=== PATIENT | female | born 1930 | race Caucasian/White ===

== ENCOUNTER 2016-10-31 19:40 | Inpatient (IN) | payer OTHER, BC ==
[~2016-10-31] VITALS: Ht 157.5 cm; Wt 40.0 kg
--- NOTE | 2016-10-31 21:55 | ED ORDER SUMMARY ---
..... Patient: LEANN TORERS OrderSheet [facility] VisitID: [id number] [place] [address] 86y, F Registration Date/Time: 10/31/2016 ORDER SHEET Weight: 40.8 kg (stated) Allergies: Codeine, Sulfa Antibiotics GENERAL ORDERS: Hip 2V Right w AP Pelvis Urgent (21:08 10/31/2016 Geneva ANDERSON) (Ack 21:10 SRedmond) (21:31 RCollier R.N.) Chest 1V Urgent (21:19 10/31/2016 EKoroleva P.A.-C) (Ack 21:32 SRedmond) (21:35 Anel) Cardiac Panel Stat (21:49 10/31/2016 Geneva ANDERSON) (Ack 21:52 SRedmond) (22:34 RCollier R.N.) UA-Culture if indicated Urgent (21:49 10/31/2016 Geneva ANDERSNO) (Ack 21:52 SRedmond) PT with INR Urgent (21:49 10/31/2016 Geneva ANDERSON) (Ack 21:52 SRedmond) (22:34 RCollier R.N.) PTT Urgent (21:49 10/31/2016 Geneva ANDERSON) (Ack 21:52 SRedmond) (22:34 RCollier R.N.) Barbour Catheter (21:49 10/31/2016 Geneva ANDERSON) (Ack 21:51 SRedmond) EKG - ER Stat (21:49 10/31/2016 Geneva ANDERSON) (Ack 21:51 SRedmond) (22:11 SRedmond) MEDICATION ORDERS: IV FLUIDS: IV NS : initial bolus none -, then 100 mL/hr for 6h (NOW); Routine (21:46 10/31/2016 Geneva ANDERSON) (Ack 22:23 RCollier R.N.) (22:33 RCollier R.N.) Demerol IV 12.5 mg (NOW) (21:49 10/31/2016 Geneva ANDERSON) (Ack 22:23 ELADIOollier R.N.) (22:34 RCollier R.N.) ORDER SHEET NOTES: [Electronically signed by Ainsley Arora R.N. (04:43 11/01/2016)] [Electronically signed by Natan Dela Cruz MD (11:41 11/02/2016)] [Electronically locked/signed by Ainsley Arora R.N. (04:43 11/01/2016)]
--- NOTE | 2016-10-31 21:55 | ED CLINICAL REPORT ---
Clinical Report - Physicians/Mid Levels [facility] [address] [place] [address] 10/31/2016 19:41 Patient: LEANN TORRES Time Seen: 20:53 Oct 31 2016. Arrived- By private vehicle. Historian- patient, family and daughter. CPT: ER phys charges level 5 plus (#[id number]). EKG interpretation (#[id number]). HISTORY OF PRESENT ILLNESS Chief Complaint: FALL and INJURY TO RIGHT LOWER EXTREMITY (HIP). The injury occurred today. Occurred at home. Fell. She experienced syncope. The patient complains of moderate pain. No blow to the head, neck pain or loss of consciousness. REVIEW OF SYSTEMS The patient complains of severe pain on weight bearing. She cannot bear weight. No numbness, dizziness, hearing loss or chest pain or pain. No weakness, nausea, laceration, fever or vomiting. No sore throat, cough, difficulty breathing, abdominal pain or black stools. No urinary frequency, hematuria, dizziness, fainting episodes or weakness. No diabetic symptoms, easy bruising or difficulty with urination. The patient has had difficulty walking. All systems otherwise negative, except as recorded above. PAST HISTORY Hypertension. Syncope. Fall. Bipolar Disorder. CVA - Cerebrovascular Accident. Ca colon, breast . Diabetes Mellitus. Hiatal Hernia. --20:43 Ainsley Arora RMegN. ADDITIONAL SURGERIES: Hysterectomy. Mastectomy. --20:43 Ainsley Arora R.N. Appendectomy. Cholecystectomy. Tonsillectomy. ADDITIONAL NOTES The nursing notes have been reviewed. PHYSICAL EXAM Vital Signs: 10/31/2016 20:36 BP: 241/84. HR: 78. RR: 15. O2 saturation: 96%. Temp: 98.1 F. Savage-Whaley pain scale: 4/10. Appearance: Alert. Appears to be in pain. Patient in moderate distress. Head: Head non-tender. No swelling of head. Eyes: Pupils equal, round and reactive to light. EOM intact. ENT: No dental injury. Pharynx normal. Neck: Painless ROM. Non-tender. CVS: Heart sounds normal. Pulses normal. Respiratory: Breath sounds normal. Chest nontender. Abdomen: No visible injury. Soft and nontender. Back: No tenderness. ROM normal. Skin: Skin intact. Skin warm. Normal skin color. Extremities: Right hip: severe tenderness located in the anterior and lateral aspect of the hip. The right leg is shortened and internally rotated. Limited ROM secondary to pain. Neurovascular intact distally. No swelling, foreign body or deformity. Neuro: Oriented X 3. No motor deficit. No sensory deficit. Reflexes normal. LABS, X-RAYS, AND EKG EKG: Normal sinus rhythm. Right and left atrial enlargement. LVH. Non-specific ST segment / T wave abnormalities. Prior EKG unavailable. The study has been interpreted contemporaneously. The study has been independently viewed by me. The EKG appears to be a good tracing. X-Rays: Chest X-ray negative. Rt Hip X-ray: Displaced, transverse femoral neck fracture of the right hip. Views: 2 view hip series. Technique: good. The X-rays were independently viewed by me and interpreted contemporaneously by me. Laboratory Tests: CBC w Diff: (EN: 11/02/2016 05:35) ( MsgRcvd 11/02/2016 06:10) Final results Test Result Flag Units (Reference) WHITE BLOOD COUNT 9.7 K/uL (4.5-11.5) RED BLOOD COUNT 3.14 L M/uL (4.00-5.20) HEMOGLOBIN 9.7 L gm/dL (12.0-16.0) HEMATOCRIT 29.8 L % (36.0-46.0) MEAN CELL VOLUME 95 fL (80-100) MEAN CORPUSCULAR HGB 31 pg (26-34) MEAN CORPUSCULAR HGB CONC 33 g/dL (31-37) RED CELL DISTRIBUTION WIDTH 13.4 % (11.6-14.8) PLATELET COUNT 85 L K/uL (150-400) NEUTROPHIL % 56.4 % (50-75) LYMPH % 36.9 % (25-40) MONO % 6.2 % (3-14) EOSINOPHIL % 0.2 % (0-4) BASOPHIL % 0.3 % (0-2) BMP: (EN: 11/02/2016 05:35) ( [facility] 11/02/2016 06:24) Final results Test Result Flag Units (Reference) GLUCOSE 172 H mg/dL (70-110) BUN 18 mg/dL (7-18) CREATININE 0.7 mg/dL (0.6-1.3) Estimated GFR >60 mL/min Estimated GFR- >60 mL/min Note: Persistent reduction over 3 months in eGFR<60 mL/min/1.73 m2 defines CKD. Patients with eGFR values>=60 mL/min/1.73 m2 may also have CKD if evidence ofpersistent proteinuria. Additional information may be foundat [email or web address]. SODIUM 138 mmol/L (136-145) POTASSIUM 3.9 mmol/L (3.5-5.1) CHLORIDE 104 mmol/L (98-107) CARBON DIOXIDE 26 mmol/L (21-32) CALCIUM 7.4 L mg/dL (8.5-10.1) Hgb/Hct: (EN: 11/01/2016 16:35) ( [facility] 11/01/2016 16:43) Final results Test Result Flag Units (Reference) HEMOGLOBIN 11.3 L gm/dL (12.0-16.0) HEMATOCRIT 34.3 L % (36.0-46.0) CBC w Diff: (EN: 11/01/2016 05:10) ( [facility] 11/01/2016 05:26) Final results Test Result Flag Units (Reference) WHITE BLOOD COUNT 12.2 H K/uL (4.5-11.5) RED BLOOD COUNT 3.39 L M/uL (4.00-5.20) HEMOGLOBIN 10.4 L gm/dL (12.0-16.0) HEMATOCRIT 31.5 L % (36.0-46.0) MEAN CELL VOLUME 93 fL (80-100) MEAN CORPUSCULAR HGB 31 pg (26-34) MEAN CORPUSCULAR HGB CONC 33 g/dL (31-37) RED CELL DISTRIBUTION WIDTH 13.1 % (11.6-14.8) PLATELET COUNT 98 L K/uL (150-400) NEUTROPHIL % 52.9 % (50-75) LYMPH % 36.7 % (25-40) MONO % 9.8 % (3-14) EOSINOPHIL % 0.2 % (0-4) BASOPHIL % 0.4 % (0-2) CMP: (EN: 11/01/2016 05:10) ( [facility] 11/01/2016 05:38) Final results Test Result Flag Units (Reference) GLUCOSE 120 H mg/dL (70-110) BUN 23 H mg/dL (7-18) CREATININE 0.7 mg/dL (0.6-1.3) Estimated GFR >60 mL/min Estimated GFR- >60 mL/min Note: Persistent reduction over 3 months in eGFR<60 mL/min/1.73 m2 defines CKD. Patients with eGFR values>=60 mL/min/1.73 m2 may also have CKD if evidence ofpersistent proteinuria. Additional information may be foundat [email or web address]. SODIUM 138 mmol/L (136-145) POTASSIUM 4.1 # mmol/L (3.5-5.1) CHLORIDE 103 mmol/L (98-107) CARBON DIOXIDE 29 mmol/L (21-32) CALCIUM 8.2 L mg/dL (8.5-10.1) TOTAL PROTEIN 5.4 L g/dL (6.4-8.2) ALBUMIN 3.0 L g/dL (3.3-5.0) BILIRUBIN, TOTAL 0.4 mg/dL (0.0-1.0) ALKALINE PHOSPHATASE 50 U/L (46-116) AST (SGOT) 25 U/L (15-37) ALT (SGPT) 60 U/L (12-78) MAGNESIUM 1.5 L mg/dL (1.8-2.4) UA-Culture if indicated: (EN: 10/31/2016 23:13) ( [facility] [place] 10/31/2016 23:27) Final results Test Result Flag Units (Reference) URINE COLOR YELLOW URINE APPEARANCE CLEAR URINE GLUCOSE NEGATIVE (NEGATIVE) URINE BILIRUBIN NEGATIVE (NEGATIVE) URINE KETONE 3+ (NEGATIVE) URINE SPECIFIC GRAVITY 1.020 (1.010-1.030) URINE PH 6.0 (5.0-8.0) URINE PROTEIN TRACE (NEGATIVE) URINE UROBILINOGEN 0.2 EU/dL (0.2-1.0) URINE NITRITE NEGATIVE (NEGATIVE) URINE BLOOD NEGATIVE (NEGATIVE) URINE LEUK ESTERASE NEGATIVE (NEGATIVE) URINE RBC RARE rbc/hpf (0-1) URINE WBC RARE wbc/hpf (0-1) URINE EPITHELIAL CELLS 0-1 EPI/hpf (0-5) URINE BACTERIA TRACE (<1+) (NONE SEEN) URINE COMMENT CULT NOT INDICATED RARE SODIUM URATE CRYSTALS.URINE CULTURES ARE SET-UP BASED ON THE FOLLOWING CRITERIA:POSITIVE NITRITEPOSITIVE LEUKOCYTE ESTERASEGREATER THAN 10 WHITE BLOOD CELLSMODERATE (2+) OR GREATER BACTERIA CBC w Diff: (EN: 10/31/2016 22:20) ( MsgRcvd 10/31/2016 23:05) Final results Test Result Flag Units (Reference) WHITE BLOOD COUNT 15.7 H K/uL (4.5-11.5) RED BLOOD COUNT 4.12 M/uL (4.00-5.20) HEMOGLOBIN 12.6 gm/dL (12.0-16.0) HEMATOCRIT 39.0 % (36.0-46.0) MEAN CELL VOLUME 95 fL (80-100) MEAN CORPUSCULAR HGB 31 pg (26-34) MEAN CORPUSCULAR HGB CONC 32 g/dL (31-37) RED CELL DISTRIBUTION WIDTH 13.3 % (11.6-14.8) PLATELET COUNT 123 L K/uL (150-400) GIANT PLATELETS NOTED ON SMEAR REVIEW. NEUTROPHIL % 84.0 H % (50-75) LYMPH % 11.8 L % (25-40) MONO % 4.0 % (3-14) EOSINOPHIL % 0 % (0-4) BASOPHIL % 0.2 % (0-2) PT with INR: (EN: 10/31/2016 22:20) ( MsgRcvd 10/31/2016 22:43) Final results Test Result Flag Units (Reference) INR 0.9 (0.8-1.2) Low Intensity Therapy: INR 1.5-2.0 PT range 18.5-23.1Mod.Intensity Therapy: INR 2.0-3.0 PT range 23.1-31.5High Intensity Therapy: INR 2.5-3.5 PT range 27.4-35.5High Intensity Therapy 2: INR 3.0-4.0 PT range 31.5-39.3 APTT 22 L SECONDS (24-34) CHEM 13 PANEL: (EN: 10/31/2016 22:20) ( MsgRcvd 10/31/2016 22:54) Final results Test Result Flag Units (Reference) GLUCOSE 215 H mg/dL (70-110) BUN 27 H mg/dL (7-18) CREATININE 0.9 mg/dL (0.6-1.3) Estimated GFR >60 mL/min Estimated GFR- >60 mL/min Note: Persistent reduction over 3 months in eGFR<60 mL/min/1.73 m2 defines CKD. Patients with eGFR values>=60 mL/min/1.73 m2 may also have CKD if evidence ofpersistent proteinuria. Additional information may be foundat www.[email or web address]. SODIUM 136 mmol/L (136-145) POTASSIUM 4.9 mmol/L (3.5-5.1) CHLORIDE 99 mmol/L (98-107) CARBON DIOXIDE 28 mmol/L (21-32) CALCIUM 9.5 mg/dL (8.5-10.1) TOTAL PROTEIN 6.8 g/dL (6.4-8.2) ALBUMIN 3.9 g/dL (3.3-5.0) BILIRUBIN, TOTAL 0.5 mg/dL (0.0-1.0) ALKALINE PHOSPHATASE 67 U/L (46-116) AST (SGOT) 29 U/L (15-37) ALT (SGPT) 84 H U/L (12-78) MAGNESIUM 1.7 L mg/dL (1.8-2.4) CPK 94 U/L (24-260) TROPONIN I 0.05 ng/mL (0.00-1.5) TROPONIN REFERENCE RANGE:<0.1 NEGATIVE0.1-1.5 INDETERMINANT>1.5 POSITIVE Type & Cross: (EN: 11/01/2016 05:10) ( MsgRcvd 11/01/2016 13:08) IP Test Result Flag Units (Reference) PATIENT BLOOD TYPE A Positive Above is a corrected result. Previously reported on ( MsgRcvd 11/01/2016 09:06) as: PATIENT BLOOD TYPE A Positive LEUKOREDUCED PACKED CELLS [id number] AP PC XM COMPATIBLE [id number] AP PC XM COMPATIBLE . PROGRESS AND PROCEDURES Course of Care: IV NS Demerol 12.5 mg IV Patient is stable. Symptoms better. Discussed case with on-call health care provider, (Arleen). Reviewed test results. Agreed upon treatment plan and decision to admit. Health care provider will see patient in hospital. Patient/family counseled. Old medical records ordered. Disposition orders written. Disposition: Admitted to Acute Care. CLINICAL IMPRESSION Closed displaced and mildly angulated fracture of the subcapital neck of the right femur. Fall on same level by tripping. (Electronically signed by Natan Dela Cruz MD 11/02/2016 11:41)
--- NOTE | 2016-10-31 21:55 | ED NURSING NOTES ---
Clinical Report - Nurses [facility] [address] [place] [address] 10/31/2016 19:41 Patient: LEANN TORRES TRIAGE Triage time 20:36. Acuity: LEVEL 3. Chief Complaint: FALL while walking, onto the ground; lost balance (2 falls today). Alert. --20:45 Ainsley Arora R.N. 20:36 10/31/16. BP: 241/84. HR: 78. RR: 15. O2 saturation: 96% on room air. Temp: 98.1 F (oral). Savage-Whaley pain scale: 4/10. --20:45 Ainsley Arora R.N. Weight: 40.8 kg stated. Height/Length: 62 inches Per Patient. BMI: 16.5. --20:44 Ainsley Arora R.N. Medications Citalopram Hydrobromide Oral (Tablet 20 mg) 1 tablet, day. Divalproex Sodium Oral (Tablet Delayed Release 250 mg) 1 tablet, day. MetFORMIN HCl Oral 500 mg, 3x a day. Simvastatin Oral 20 mg, daily. TraZODone HCl Oral 50 mg, daily. --20:41 Ainsley Arora R.N. Losartan Potassium Oral (Tablet 100 mg) 1 tablet, daily. --20:41 Ainsley Arora R.N. Metoprolol Succinate ER Oral 500mg, daily. --20:42 Ainsley Arora R.N. Aspirin Oral (Tablet 81 mg) 1 tablet, daily. --20:43 Ainsley Arora R.N. Allergies Codeine. Sulfa Antibiotics. --20:41 Ainsley Arora R.N. History Arrived by private vehicle. Historian: patient. Accompanied by family. Primary physician (Jaspal). Location of injuries: right hip. This occurred today. Occurred at home. PAST MEDICAL HX: Tetanus status: up-to-date. Immunizations: up-to-date. SOCIAL HX: Never smoker. No alcohol use. FUNCTIONAL ASSESSMENT: Functional assessment performed: independent with the activities of daily living; uses a walking stick. --20:45 Ainsley Arora R.N. PROBLEMS: Hypertension. Syncope. Fall. Bipolar Disorder. CVA - Cerebrovascular Accident. Ca colon, breast . Diabetes Mellitus. Hiatal Hernia. --20:43 Ainsley Arora R.N. ADDITIONAL SURGERIES: Hysterectomy. Mastectomy. --20:43 Ainsley Arora R.N. Appendectomy. Cholecystectomy. Tonsillectomy. --20:44 Ainsley Arora R.N. Interventions ID band on patient. To treatment room. --20:45 Ainsley Arora R.N. PHYSICAL ASSESSMENT To room via wheelchair. Patient gowned. GENERAL / NEURO / PSYCH: Alert. Oriented X 4. Appears in no acute distress. CVS: Capillary refill less than 2 seconds. SKIN: Skin is warm and dry. --20:45 Ainsley Arora R.N. NURSING PROGRESS NOTES Two patient identifiers checked. Call light placed in reach. Side rails up x 2. Bed placed in lowest position. Brakes of bed on. --20:45 Ainsley Arora R.N. Patient ready for evaluation- chart flagged. --20:45 Ainsley Arora R.N. ( Assisted [employer] to move pt from ED bed to Radiology table.). --21:21 Ainsley Arora R.N. ( Pt's daughter reports that she gave her night time medications (Simvastatin, Citalopram, Trazadone, Metformin, Metoprolol, and Divalproex) EDMD aware.). --21:30 Ainsley Arora R.N. 22:25 10/31/2016 Site #1 started via IV in the right antecubital space with an 20g angiocath, with aseptic technique and good blood return; one attempt. Blood drawn: rainbow set. Labeled in the presence of the patient and sent to the lab. Saline lock flushed with 10 mL saline. --22:25 Frederick Mcdonald 22:30 10/31/2016 Started bag #1 1000 mL IV Fluids IV NS (Saline); at 100 mL/hr via site #1 via IV pump. Allergies verified and confirmed 5 rights. IV patency established. IV site checked: no pain, redness, or swelling. IV flushed thoroughly pre- and post-medication administration. --22:33 Ainsley Arora R.N. 22:31 10/31/2016 Demerol (Meperidine HCl) IVP 12.5 mg given over 1 minute(s) via site #1. Allergies verified and confirmed 5 rights. IV patency established. IV site checked: no pain, redness, or swelling. IV flushed thoroughly pre- and post-medication administration. IVP given by RN. --22:34 Ainsley Arora R.N. 22:34 10/31/16. BP: 166/72. HR: 82. RR: 15. O2 saturation: 97% on room air. Savage-Whaley pain scale: 2/10. --22:35 Ainsley Arora R.N. 16 fr conti catheter. During procedure hand hygiene observed and sterile equipment and aseptic technique used. Return of less than 50 mL yellow-colored clear urine; secured with stabilization device. It was a complicated placement. She tolerated procedure well. Patient ID band checked for patient name and birthdate: patient confirmed. Catheterized urine collected with return of yellow-colored clear urine; sample sent to lab. Specimen labeled in the presence of the patient. --23:16 Ainsley Arora R.N. EKG time: (2218 PM). EKG was ordered, performed by a tech and shown to the ED physician. --23:38 Morena Orozco. DISPOSITION / DISCHARGE Report was given to a nurse via a phone call. Report included patient's care, treatment, medications, reviewed medication reconcilliation, and condition (including any recent changes or anticipated changes). All questions were answered. Report was acknowledged. --23:35 Ainsley Arora R.N. 23:36 10/31/16. BP: 155/70. HR: 78. RR: 15. O2 saturation: 95% on room air. Savgae-Whaley pain scale: 4/10. --23:36 Ainsley Arora R.N. 23:36 10/31/2016 Site #[address] upon admission; flushes easily. --23:37 Ainsley Arora R.N. 23:37 10/31/2016 IV Fluids IV NS Continued: upon admission at the rate of 100 mL/hr. 900 mL remaining bag #1. IV patency established. IV site checked: no pain, redness, or swelling. IV flushed thoroughly. --23:37 Ainsley Arora R.N. Locked/Released at 11/01/2016 4:43 by Ainsley Arora R.N.
--- NOTE | 2016-10-31 21:55 | ED ORDER SUMMARY ---
..... Patient: LEANN TORRES OrderSheet [facility] VisitID: [id number] [place] [address] 86y, F Registration Date/Time: 10/31/2016 ORDER SHEET Weight: 40.8 kg (stated) Allergies: Codeine, Sulfa Antibiotics GENERAL ORDERS: Hip 2V Right w AP Pelvis Urgent (21:08 10/31/2016 [place] ANDERSON) (Ack 21:10 SRedmond) (21:31 RCollier R.N.) Chest 1V Urgent (21:19 10/31/2016 EKoroleva P.A.-C) (Ack 21:32 SRedmond) (21:35 Anel) Cardiac Panel Stat (21:49 10/31/2016 Geneva ANDERSON) (Ack 21:52 SRedmond) (22:34 RCollier R.N.) UA-Culture if indicated Urgent (21:49 10/31/2016 Geneva ANDERSON) (Ack 21:52 SRedmond) PT with INR Urgent (21:49 10/31/2016 [place] ANDERSON) (Ack 21:52 SRedmond) (22:34 RCollier R.N.) PTT Urgent (21:49 10/31/2016 [place] ANDERSON) (Ack 21:52 SRedmond) (22:34 RCollier R.N.) Barbour Catheter (21:49 10/31/2016 [place] ANDERSON) (Ack 21:51 SRedmond) EKG - ER Stat (21:49 10/31/2016 [place] ANDERSON) (Ack 21:51 SRedmond) (22:11 SRedmond) MEDICATION ORDERS: IV FLUIDS: IV NS : initial bolus none -, then 100 mL/hr for 6h (NOW); Routine (21:46 10/31/2016 Geneva ANDERSON) (Ack 22:23 RCollier R.N.) (22:33 RCollier R.N.) Demerol IV 12.5 mg (NOW) (21:49 10/31/2016 [place] ANDERSON) (Ack 22:23 ELADIOollier R.N.) (22:34 RCollier R.N.) ORDER SHEET NOTES: [Electronically signed by Ainsley Arora R.N. (04:43 11/01/2016)] [Electronically signed by Natan Dela Cruz MD (11:41 11/02/2016)] [Electronically locked/signed by Ainsley Arora R.N. (04:43 11/01/2016)]
--- NOTE | 2016-10-31 22:33 | DIAGNOSTIC IMAGING REPORT ---
PROCEDURE: XR HIP 2VW W W/O AP PELVIS-RT INDICATION: TRAUMA/INJURY TECHNIQUE: AP view of the pelvis and hips with lateral view of the right hip. COMPARISON: None. FINDINGS: RIGHT HIP: Decreased mineralization. There is varus deformity and slight cranial impaction of the right hip secondary to a subcapital right femoral neck fracture. No dislocation. PELVIS: Decreased mineralization. No visible pelvic fractures. The left hip is intact. No unusual soft tissue mass. Moderate retained stool. Degenerative change in the lower thoracic spine. Surgical staple line of prior bowel anastomosis visualized. IMPRESSION: 1. Impacted subcapital right femoral neck fracture. 2. Mild demineralization.
--- NOTE | 2016-10-31 22:35 | DIAGNOSTIC IMAGING REPORT ---
PROCEDURE: XR CHEST 1 VIEW INDICATION: CHEST PAIN TECHNIQUE: Single view COMPARISON: 06/21/2016 FINDINGS: The cardiomediastinal contour is normal. No central venous congestion. The lungs mildly hyperlucent with coarse interstitial markings but otherwise clear without focal consolidation, pleural effusion or pneumothorax. The osseous structures are intact. Surgical clips in the left upper quadrant of the abdomen. IMPRESSION: 1. No acute disease. 2. Senescent changes and/or fibrosis.
[2016-10-31 23:54] VITALS: BP 145/62
[2016-11-01] VITALS (10 sets, daily range): BP systolic 130–169; BP diastolic 58–75
--- NOTE | 2016-11-01 00:18 | History & Physical Report ---
Information Source Information Source: Self, Child Reliability: Good History Chief Complaint Fall with right hip fracture History of Present Illness Patient is an 86-year-old female with a past medical history of hypertension diabetes and hyperlipidemia that is presenting with mechanical fall at home resulting in a right hip fracture. Patient has been in her usual state of health for the past few years with no major incidences. She has been in good health has been following up with doctors regularly and has been compliant with her medication regimen. Patient was at home today ambulatory as she usually is when she suffered a mechanical fall and fell on her right side. There were no issues surrounding the fall patient had appropriate mentation during the fall itself and immediately after. She did not lose consciousness or did not have any sort of surrounding all anabelle that would predispose her to fall. When patient fell her daughter was nearby and immediately came to her attention. Patient was admitted to the ER had adequate pain control and no surrounding pathologies with this admission. Patient is otherwise good health for an 86-year-old female. Patient is currently stable Patient History 1. Fall 2. Closed right hip fracture 3. Hypertension 4. Diabetes mellitus 5. Hyperlipidemia 6. Seizure disorder Social History Pt lives at home with her daughter. She is independent in all her ADLs. She has no smoking history drinks alcohol very rarely and has no illicit substance use. Family History Family history was reviewed; no changes noted. Medications and Allergies Medications Home Medications Citalopram 20 mg daily divalproexm 250 mg daily metformin 500 mg tid simvastatin 30 mg daily trazadone 50 mg daily losartan 100 mg daily metoprolol 100 mg daily Aspirin 81 mg daily Current Medications Sig/Alicia Start time Last Medication Dose Route Stop Time Status Admin Enoxaparin Sodium 30 MG QA 11/01 0900 AC SC Insulin Human Lispro See Dose ACHS 11/01 0730 AC Insts (1) SC Acetaminophen 650 MG Q6H PRN 10/31 2299 AC PO Hydromorphone HCl 1 MG Q2H PRN 10/31 2299 AC 11/01 IV 0527 Sodium Chloride 1,000 ML ASDIRECTED 10/31 2299 AC 11/01 IV 0055 Dextrose/Sodium 1,000 ML ASDIRECTED 10/31 2214 AC Chloride/Electrolyt IV Ondansetron HCl 4 MG Q4H PRN 10/31 2214 AC IV Dose Instructions: (1)Insulin Human Lispro: LOW DOSE: ACCUCHECK AND SLIDING SCALE >>To change sliding scale DISCONTINUE this order and enter a NEW order. Thanks< Allergies Coded Allergies: Morphine (Mild, CAUSES LOTS OF ITCHING 01/05/13) Codeine (01/05/13) Review of Systems Constitutional Denies: Fever, Chills, Sweats, Weakness, Malaise, Other. Eyes Denies: Pain, Vision Change, Conjunctival Inflammation, Eyelid Inflammation, Redness, Other. ENT Denies: Ear Pain, Ear Discharge, Nose Pain, Nasal Discharge, Nasal Congestion, Mouth Pain, Mouth Swelling, Throat Pain, Throat Swelling, Other. Respiratory Denies: Cough, Dry, SOB w/exertion, Wheezing, Hemoptysis, Pleuritic Pain, Sputum , Other. Cardiovascular Denies: Chest Pain, Palpitations, Orthopnea, PND, Edema, Light-headedness, Other. Gastrointestinal Denies: Nausea, Vomiting, Abdominal Pain, Diarrhea, Constipation, Melena, Hematochezia, Other. Genitourinary Denies: Dysuria, Frequency, Incontinence, Hematuria, Retention, Other. Musculoskeletal Other (hip pain ). Denies: Neck Pain, Shoulder Pain, Arm Pain, Back Pain, Hand Pain, Leg Pain, Foot Pain. Skin Denies: Rash, Lesions, Jaundice, Bruising, Other. Neurological Denies: Weakness, Numbness, Incoordination, Change in speech, Confusion, Seizures, Other. Physical Exam Vital Signs / I&Os Vital Signs Date Time Temp Pulse Resp B/P Pulse O2 O2 Flow FiO2 Ox Delivery Rate 11/01 0255 98.8 65 16 143/60 100 Room Air 11/01 0000 Room Air 10/31 2354 98.2 75 16 145/62 97 Room Air I&O 10/31 0800 10/31 1600 11/01 0000 Intake Total Output Total Balance General Appearance Alert, Oriented X3, No acute distress HEENT Atraumatic, PERRLA, Moist mucous membranes Lungs Normal exam, Clear to auscultation Cardiovascular Regular rate and rhythm, Normal S1 and S2, No murmurs, gallops, rubs Abdomen Soft, No tenderness, No guarding Pelvic No tenderness Extremities No clubbing, No edema, Normal pulses Skin No Significant Lesions Neurological Normal speech, Normal tone, Cranial nerves intact, No lateralizing signs Psych/Mental Status Mood normal LAB Results Laboratory Tests 10/31 10/31 11/01 2220 2313 0510 Chemistry Plasma Sodium (136 - 145 mmol/L) 136 138 Plasma Potassium (3.5 - 5.1 mmol/L) 4.9 4.1 Plasma Chloride (98 - 107 mmol/L) 99 103 CO2 (Enzymatic) (21 - 32 mmol/L) 28 29 BUN (7 - 18 mg/dL) 27 23 Creatinine (0.6 - 1.3 mg/dL) 0.9 0.7 Est GFR ( Amer) (mL/min) >60 >60 Est GFR (Non-Af Amer) (mL/min) >60 >60 Glucose (70 - 110 mg/dL) 215 120 Plasma Calcium (8.5 - 10.1 mg/dL) 9.5 8.2 Plasma Magnesium (1.8 - 2.4 mg/dL) 1.7 1.5 Total Bilirubin (0.0 - 1.0 mg/dL) 0.5 0.4 AST (15 - 37 U/L) 29 25 ALT (12 - 78 U/L) 84 60 Alkaline Phosphatase (46 - 116 U/L) 67 50 Creatine Kinase (24 - 260 U/L) 94 Troponin (0.00 - 1.5 ng/mL) 0.05 Total Protein (6.4 - 8.2 g/dL) 6.8 5.4 Albumin (3.3 - 5.0 g/dL) 3.9 3.0 Coagulation INR (0.8 - 1.2) 0.9 APTT (24 - 34 SECONDS) 22 Hematology WBC (4.5 - 11.5 K/uL) 15.7 12.2 RBC (4.00 - 5.20 M/uL) 4.12 3.39 Hgb (12.0 - 16.0 gm/dL) 12.6 10.4 Hct (36.0 - 46.0 %) 39.0 31.5 MCV (80 - 100 fL) 95 93 MCH (26 - 34 pg) 31 31 RDW (11.6 - 14.8 %) 13.3 13.1 Neut % (Auto) (50 - 75 %) 84.0 52.9 Lymph % (Auto) (25 - 40 %) 11.8 36.7 [place] % (Auto) (3 - 14 %) 4.0 9.8 Eos % (Auto) (0 - 4 %) 0 0.2 Baso % (Auto) (0 - 2 %) 0.2 0.4 Plt Count, EDTA (150 - 400 K/uL) 123 98 PUBS MCHC (31 - 37 g/dL) 32 33 Urines Urine Color YELLOW Urine Appearance CLEAR Urine pH (5.0 - 8.0) 6.0 Ur Specific [place] (1.010 - 1.030) 1.020 Urine Protein (NEGATIVE) TRACE Urine Ketones (NEGATIVE) 3+ Urine Blood (NEGATIVE) NEGATIVE Urine Nitrite (NEGATIVE) NEGATIVE Urine Bilirubin (NEGATIVE) NEGATIVE Urine Urobilinogen (0.2 - 1.0 EU/dL) 0.2 Ur Leukocyte Esterase (NEGATIVE) NEGATIVE Urine RBC (0 - 1 rbc/hpf) RARE Urine WBC (0 - 1 wbc/hpf) RARE Ur Epithelial Cells (0 - 5 EPI/hpf) 0-1 Urine Bacteria (NONE SEEN) TRACE (<1+) Urine Glucose (NEGATIVE) NEGATIVE Urine Comment CULT NOT INDICATED Assessment and Plan Problem List 1. Closed right hip fracture Plan - s/p fall - impacted right femoral fracture - ortho consulted - pain control appropriate 2. Fall Plan - no surrounding pathology led to the fall - currently patient is mentating appropriately - no further investigation required 3. Hypertension Plan - pts blood pressure has been appropriate - will c/w metoprolol 100 mg daily and losartan 100 mg daily - will continue to monitor on tele 4. Diabetes mellitus Plan - pt has an established history of diabetes - will initiate sliding scale coverage - and will restart metformin 500 mg tid when patient is eating again 5. Seizure disorder Plan - pt has an established history of seizure diorder - no recent seizures noted - will c/w divalproex ER 250 mg daily 6. Hyperlipidemia Plan - established - will c/w simvastatin at current dose
--- NOTE | 2016-11-01 00:26 | NUR ---
PATIENT ARRIVED ON FLOOR AT 2345. BETI SLIDE TO BED WITH 4 PERSON ASSIST. TOLERATED WELL. DAUGHTER AT BEDSIDE, ATTENTIVE TO PATIENT. MD LING NOTIFIED UPON ARRIVAL TO FLOOR. VSS, DENIES PAIN AT THIS TIME. NPO, ALLEN TO GRAVITY. CLEAR YELLOW UOP. ALERT AND ORIENTED ON ROOM AIR. BED REST AT THIS TIME. [facility]
[2016-11-01] MEDS ORDERED: ASPIRIN 81 LOW81 MG PO (01:50)
[2016-11-01] MEDS ORDERED: CITALOPRAM HYDR20 MG PO (01:50)
[2016-11-01] MEDS ORDERED: COZAAR100 MG PO (01:51)
[2016-11-01] MEDS ORDERED: GLUCOPHAGE500 MG PO (01:51)
[2016-11-01] MEDS ORDERED: DEPAKOTE ER250 MG PO (01:51)
[2016-11-01] MEDS ORDERED: METOPROLOL SUCC25 MG PO (01:53)
[2016-11-01] MEDS ORDERED: SIMVASTATIN20 MG PO (01:54)
[2016-11-01] MEDS ORDERED: TRAZODONE HCL50 MG PO (01:55)
--- NOTE | 2016-11-01 07:37 | Progress Note ---
Subjective General Fell yesterday with a fracture of the right femoral neck. Admitted for same. She will be scheduled for rivera-arthroplasty today. Full report dictated.F
--- NOTE | 2016-11-01 07:37 | Progress Note ---
Subjective General Fell yesterday with a fracture of the right femoral neck. Admitted for same. She will be scheduled for rivera-arthroplasty today. Full report dictated.F
--- NOTE | 2016-11-01 08:05 | NUR ---
RECEIVED PT ON BED, AWAKE, ALERT, ORIETNED, COHERENT, COOPERATIVE. V/S TAKEN AND RECORDED. ASSESSMENT DONE. PT DENIES CHEST PAIN, ANY PAIN AT THIS TIME. SEEN AND EXAMINED BY DR OTIS BURNETT ROUNDS. WITH ORDERS MADE AND CARRIED OUT. FOR BIPOLAR RT HIP SURGERY TODAY. PLAN OF CARE INFORMED PT, PT UNDERSTOOD. CONSENT SECURED. MORNING CARE DONE. MAINTAINED ON NPO. NEEDS ATTENDED.
--- NOTE | 2016-11-01 08:09 | Progress Note ---
Subjective General Note Date: November 01, 2016 Admission Date: October Hospital Day: 1 PCP: None Status: Inpatient AC. Advanced Directive: FULL CODE Room: 211 Bre[place] History 86-year-old female with a past medical history of hypertension diabetes and hyperlipidemia that is presenting with mechanical fall at home resulting in a right hip fracture. She was seen in the emergency department fracture was diagnosed. Orthopedic surgery was consulted. An admission through Dr. Campbell Qiu M.D. Subjective Patient complains of right hip pain. The patient is seen just before she is scheduled for surgery. Patient is said to be a DNR. Patient has a history of bipolar for which she is stable. Daughter is her gardening instructor. She has a history of hypertension, hyperlipidemia and diabetes. Patient requests none Physical Exam Vital Signs / I&Os Vital Signs Date Time Temp Pulse Resp B/P Pulse O2 O2 Flow FiO2 Ox Delivery Rate 11/01 0637 98.2 65 20 143/64 97 Room Air 0.0 11/01 0255 98.8 65 16 143/60 100 Room Air 11/01 0000 Room Air 10/31 2354 98.2 75 16 145/62 97 Room Air I&O 10/31 0800 10/31 1600 11/01 0000 Intake Total Output Total Balance General Appearance Oriented X3, Cooperative HEENT EOMI Lungs Normal air movement Cardiovascular Normal S1 and S2 Abdomen Soft, No tenderness Extremities tenderness over the hip joint anteriorly to the shaft. LAB Results Laboratory Tests 10/31 10/31 11/01 11/01 2220 2313 0510 1635 Chemistry Plasma Sodium (136 - 145 mmol/L) 136 138 Plasma Potassium (3.5 - 5.1 mmol/L) 4.9 4.1 Plasma Chloride (98 - 107 mmol/L) 99 103 CO2 (Enzymatic) (21 - 32 mmol/L) 28 29 BUN (7 - 18 mg/dL) 27 23 Creatinine (0.6 - 1.3 mg/dL) 0.9 0.7 Est GFR ( Amer) (mL/min) >60 >60 Est GFR (Non-Af Amer) (mL/min) >60 >60 Glucose (70 - 110 mg/dL) 215 120 Plasma Calcium (8.5 - 10.1 mg/dL) 9.5 8.2 Plasma Magnesium (1.8 - 2.4 mg/dL) 1.7 1.5 Total Bilirubin (0.0 - 1.0 mg/dL) 0.5 0.4 AST (15 - 37 U/L) 29 25 ALT (12 - 78 U/L) 84 60 Alkaline Phosphatase (46 - 116 U/L) 67 50 Creatine Kinase (24 - 260 U/L) 94 Troponin (0.00 - 1.5 ng/mL) 0.05 Total Protein (6.4 - 8.2 g/dL) 6.8 5.4 Albumin (3.3 - 5.0 g/dL) 3.9 3.0 Coagulation INR (0.8 - 1.2) 0.9 APTT (24 - 34 SECONDS) 22 Hematology WBC (4.5 - 11.5 K/uL) 15.7 12.2 RBC (4.00 - 5.20 M/uL) 4.12 3.39 Hgb (12.0 - 16.0 gm/dL) 12.6 10.4 11.3 Hct (36.0 - 46.0 %) 39.0 31.5 34.3 MCV (80 - 100 fL) 95 93 MCH (26 - 34 pg) 31 31 RDW (11.6 - 14.8 %) 13.3 13.1 Neut % (Auto) (50 - 75 %) 84.0 52.9 Lymph % (Auto) (25 - 40 %) 11.8 36.7 [place] % (Auto) (3 - 14 %) 4.0 9.8 Eos % (Auto) (0 - 4 %) 0 0.2 Baso % (Auto) (0 - 2 %) 0.2 0.4 Plt Count, EDTA (150 - 400 K/uL) 123 98 PUBS MCHC (31 - 37 g/dL) 32 33 Urines Urine Color YELLOW Urine Appearance CLEAR Urine pH (5.0 - 8.0) 6.0 Ur Specific [place] (1.010 - 1.030) 1.020 Urine Protein (NEGATIVE) TRACE Urine Ketones (NEGATIVE) 3+ Urine Blood (NEGATIVE) NEGATIVE Urine Nitrite (NEGATIVE) NEGATIVE Urine Bilirubin (NEGATIVE) NEGATIVE Urine Urobilinogen (0.2 - 1.0 EU/dL) 0.2 Ur Leukocyte Esterase (NEGATIVE) NEGATIVE Urine RBC (0 - 1 rbc/hpf) RARE Urine WBC (0 - 1 wbc/hpf) RARE Ur Epithelial Cells (0 - 5 EPI/hpf) 0-1 Urine Bacteria (NONE SEEN) TRACE (<1+) Urine Glucose (NEGATIVE) NEGATIVE Urine Comment CULT NOT INDICATED Assessment and Plan Problem List 1. Closed right hip fracture Plan Surgical follow-up. Orthopedic surgical procedure. 2. Hypertension Plan Home Medication applied. Monitor blood pressure. Salt restricted diet. Pain control 3. Diabetes mellitus Plan Monitor sugars. Diabetic diet. Before meals at bedtime sugar POC 4. Hyperlipidemia Plan HLD, diet controlled; left side modifications. 5. Seizure disorder Plan Maintain adequate therapy. Current status: Fair Anticipated discharge date: 1-2 days Anticipated discharge placement: Home Patient care time: Time spent in chart review, patient interview, physical exam, CPOE, and care documentation: 25 minutes Visit to patient today: 1 Complexity of care: Mild E&M Codes Rounding: Inpt-Low/[id number]
--- NOTE | 2016-11-01 08:27 | CONSULTATION REPORT ---
DATE OF CONSULTATION: 11/01/2016 CHIEF COMPLAINT: 1. Right hip pain HISTORY OF PRESENT ILLNESS: The patient was in her usual state of good health and just lost her balance and fell down as she was going up a step into her house. She said she did not have any dizziness, was not faint at all, and just tripped and went down and was unable to ambulate afterwards. She had pain in her right hip. She was brought to the emergency department where x-rays confirmed the presence of the fracture, and she was admitted by the hospitalist service. MEDICAL/SURGICAL HISTORY: The patient's past history is positive in that she has had breast cancer, but so far as she knows, she is cured. She also suffers from hypertension, from depression, from diabetes, from hypercholesterolemia, and she has a seizure disorder and also has a sleep disorder. PHYSICAL EXAMINATION: Physical examination was limited to the lower extremities. I could not get either a dorsal pedal or posterior tibial pulse on either side, but the feet are warm. She has just minimal, if any, pedal edema, the same right and left, and she has active dorsiflexion and plantarflexion of the toes on both sides and has light touch sensation present throughout the toes distally. The toes themselves are warm and pink. The capillary refilling is almost immediate. The range of motion was not attempted, and she does have a little bit of shortening on the right side. LAB/IMAGING: The x-rays show her to have a fracture of right femoral neck, which is displaced and angulated, and she also has some moderate osteoporosis. IMPRESSION: 1. Right femoral neck fracture PLAN: The plan will be for replacement of the same. I described it to her, how we would go about doing it, the risk of infection, of problems with healing, of failure, of blood clots, bleeding, with need for transfusion, and anesthesia complications including . She understands and accepts and would like to proceed. We will do the surgery then later today.
--- NOTE | 2016-11-01 14:05 | NUR ---
PT WENT TO SURGERY VIA BED AT 1400 PER MS ERENDIRA Wise
--- NOTE | 2016-11-01 14:35 | NUR ---
NUTRITION ASSESSMENT: S: Pt admitted with dx/o right hip fx. PMH of diabetes, depression, hypercholesterolemia, seizure and sleep disorder. O: Diet Rx: Consistent Carb NKFA Wts: 37.2 kg Ht: 62" IBW: 46-59 kg BMI: 15 Est Kcals: ~4254-2975 kcals per day Est Pro: ~53-63 g per day Est Fluids: ~1500 mls per day Meds Incl: celexa, low dose sliding scal insulin, metformin, metoprolol, trazedone, see eMar for complete list. Labs Incl: (11/01) glucose 120, BUN 23, Creat 0.7, Na+ 138, K+ 4.1, mag 1.5, Ca+ 8.2, total pro 5.4, albumin 3.0, HCT 31.5, HGB 10.4, MCV 93, MCh 31 Skin: Barron Score 15, old scars both upper arms, bruise abdomen, waffle overlay s Accuchecks: 120 A: Pt now on consistent carb diet 2/2 hx/o DM. Pt s/o right hip fx repair. Rev'd meds and labs, pt underweight per BMI. Rec mighty shakes q meal and offer BOOST bid between meals to help optimze po intake RD to follow up prn/protocol. P: 1. Might shake q meal 2. BOOST BID Between meals.
--- NOTE | 2016-11-01 16:03 | Operative Report ---
Operative Report Date of Surgery: t Preoperate Diagnosis: Fracture right femoral neck Postoperative Diagnosis: Same Surgeon: Edmund Francis MD Procedure Performed: Right hip hemiarthroplasty Anesthesia: GA Indications: Fracture right hip Surgical Technique: This is Martin Francis dictating the report for Leslie George. The patient was taken to the operating room where she was given a general anesthetic. She was then placed on her left side on the operating table, then the entire right lower extremity including the area about the hip and buttock were prepped and draped in the usual sterile fashion. She had a slightly oblique posterior lateral incision made over the right hip and this was carried down through the subcutaneous tissue. The Deep fascia was incised in line with its fibers and the short external rotator muscles were incised at their attachment to the proximal femur. The capsule was opened in a T-shaped fashion and the hip was then dislocated and the femoral neck was excised after resecting at the base of the neck. The head was sized and found to be a 42 mm size. The patient then had the cookie-cutter osteotome used to osteotomize the lateral portion of the remaining femoral neck and the canal finder placed down the canal. She then had broaching of the canal and the stepwise fashion to a final #4 size. Trial reduction with the standard offset femoral neck and 42 mm head size showed appropriate leg length. The trial components were then removed and the actual 4 standard offset femoral component seated into place and the 42 mm head seated on the taper with the -3 collar. The hip was reduced and the capsule closed using interrupted [id number] sutures of #2 nonabsorbable braided suture. The piriformis tendon was repaired with the same suture the sciatic nerve was identified and the check to besure that it was in good condition which it was. The deep fascia was closed using interrupted and running #1 Polysorb suture and the subcutaneous layer was closed with 2-0 Polysorb suture. The skin was closed with a subcuticular 3-0 Polysorb suture. She was then dressed with Xeroform and ABD pad. This was taped securely in place and she was rolled into the supine position and knee immobilizer placed on the right leg. She was taken to the recovery room in stable condition. Estimated blood loss was 150 cc. Complications were none. Specimen sent to lab for the femoral head and neck from the right side.
--- NOTE | 2016-11-01 17:23 | DIAGNOSTIC IMAGING REPORT ---
PROCEDURE: XR HIP 2VW W W/O AP PELVIS-RT INDICATION: post op TECHNIQUE: AP view of the pelvis and hips with lateral view of the right hip. COMPARISON: Pelvis right hip 10/31/2016 FINDINGS: Right HIP: Total hip replacement on the right. No fracture or dislocation. PELVIS: Total hip replacement on the right. Anatomic alignment. IMPRESSION: 1. Total hip replacement on the right.
--- NOTE | 2016-11-01 19:00 | NUR ---
PT ARRIVED FROM PACU AWAKE AND WITH DAUGHTER I ATTENDANCE. DRESSING TO RIGHT HIP CLEAN DRY AND INTACT WITH ICE BAG APPLIED.
--- NOTE | 2016-11-01 23:18 | NUR ---
ON ASSESSMENT, PT C/O SEVERE PAIN TO R HIP. ICE PACK IN PLACE. TORADOL GIVEN WITHOUT RELIEF. MD NOTIFIED AND ORDERS REC'D. DILAUDID 0.25 MG IV GIVEN WITH RELIEF. DRESSING TO R HIP C/D/I. CMS INTACT TO OPERATIVE EXTREMITY. TURNING Q2H, ON WAFFLE MATTRESS. IS TEACHING DONE, PT USING IS TO 1250. VSS. WILL MONITOR.
--- NOTE | 2016-11-01 23:20 | NUR ---
END TIDAL CO2 MONITORING IN PLACE.
[2016-11-02] VITALS (14 sets, daily range): BP systolic 110–188; BP diastolic 41–76
--- NOTE | 2016-11-02 08:11 | Progress Note ---
Subjective General VSS Afebrile BP 138/71 Hgb 9.7 WBC 9.7 FBS 172 Calcium 7.4 C/O pain. Had some nausea earlier, but none now. Hungry and would like to eat. Also has red itchy eyes. NMV unchanged. Legs = length. PT today DC planning. Decrease IVFs. Gentamycin ophthalmic drops. Oxycodone for pain/
--- NOTE | 2016-11-02 08:15 | Progress Note ---
Subjective General Note Date: November 02, 2016 Admission Date: November 01, 2016 Hospital Day: 2 PCP: Chandrika Gallegos Status: Inpatient AC. Advanced Directive: FULL CODE Room: 306 Breif History 86-year-old female with a past medical history of hypertension diabetes and hyperlipidemia that is presenting with mechanical fall at home resulting in a right hip fracture. She was seen in the emergency department fracture was diagnosed. Orthopedic surgery was consulted. An admission through Dr. Campbell Qiu M.D. Subjective Patient is seen at bedside. Patient apparently had a difficult time with recovery. She was given a small amount of. Patient became obtunded and patient was revived him in transported to ICU. Patient is being comfortable ever since. All necrotic symptoms since been status, continue. Patient is back on her home medication. Patient states that she is feeling well. Patient's been up in a chair as she's also had weightbearing activity. Patient requests none Physical Exam Vital Signs / I&Os Vital Signs Date Time Temp Pulse Resp B/P Pulse O2 O2 Flow FiO2 Ox Delivery Rate 11/02 0807 2.0 11/02 0700 98.4 71 12 138/51 94 Nasal 2.0 Cannula 11/02 0616 68 17 140/58 97 Nasal 2.0 Cannula 11/02 0500 67 13 146/52 99 11/02 0419 98.2 64 14 115/48 94 Nasal 2.0 Cannula 11/02 0306 63 12 150/63 100 Nasal 2.0 Cannula 11/02 0228 71 12 127/52 98 Nasal 2.0 Cannula 11/02 0153 65 12 119/48 95 Nasal 2.0 Cannula 11/02 0009 98.1 73 16 164/76 99 Nasal 2.0 Cannula 11/01 2313 98.2 69 14 162/63 100 Nasal 2.0 Cannula 11/01 2157 72 18 137/59 100 Nasal 2.0 Cannula / 2108 71 22 144/64 100 Nasal 2.0 Cannula 11/01 2033 2.0 / 1945 67 21 156/66 100 Nasal 2.0 Cannula 04 1930 Nasal 2.0 Cannula / 1930 72 17 168/75 100 Nasal 2.0 Cannula 04/ 1913 70 24 169/73 100 Nasal 2.0 Cannula 04/ 1856 98.2 71 19 161/69 100 Nasal 2.0 Cannula 04/ 1840 70 18 175/66 100 04/25 1839 98.2 71 18 169/60 100 Nasal 3.0 Cannula 11/01 1830 67 20 164/66 100 11/01 1820 67 21 162/64 100 11/01 1810 68 18 172/66 100 11/01 1800 72 16 171/72 100 11/01 1750 98.2 77 20 173/77 100 11/01 1740 82 20 185/84 100 11/01 1730 118 20 230/100 100 11/01 1720 115 20 224/120 100 11/01 1710 104 20 224/95 100 11/01 1700 102 22 216/82 100 11/01 1650 82 26 249/121 100 11/01 1640 58 17 221/108 100 04 1635 59 16 229/73 100 Nasal 3.0 Cannula 11/01 1630 60 17 229/73 100 Nasal 3.0 Cannula 11/01 1625 60 18 210/90 100 Nasal 3.0 Cannula 11/01 1620 60 15 218/70 100 Nasal 3.0 Cannula 11/01 1615 60 17 212/78 100 Nasal 3.0 Cannula 11/01 1610 56 16 229/71 100 Nasal 3.0 Cannula 11/01 1605 56 19 232/83 100 Nasal 3.0 Cannula 11/01 1600 98.2 57 21 223/70 100 Nasal 3.0 Cannula 11/01 1046 98.2 61 20 150/58 98 Room Air 0.0 11/01 0813 Room Air 0.0 I&O 11/01 0800 11/01 1600 11/02 0000 Intake Total 693 958 240 Output Total 350 650 700 Balance 343 308 -460 General Appearance Oriented X3, Cooperative HEENT PERRLA, EOMI Lungs Clear to auscultation Neck Supple, No JVD Cardiovascular Regular rate and rhythm, Normal S1 and S2 Abdomen Soft, No tenderness Extremities No clubbing, right hip joint is fixed and stable. Patient stabilized. Skin No Breakdown Neurological Normal speech, Cranial nerves intact Psych/Mental Status Mood normal LAB Results Laboratory Tests 11/01 11/02 1635 0535 Chemistry Plasma Sodium (136 - 145 mmol/L) 138 Plasma Potassium (3.5 - 5.1 mmol/L) 3.9 Plasma Chloride (98 - 107 mmol/L) 104 CO2 (Enzymatic) (21 - 32 mmol/L) 26 BUN (7 - 18 mg/dL) 18 Creatinine (0.6 - 1.3 mg/dL) 0.7 Est GFR ( Amer) (mL/min) >60 Est GFR (Non-Af Amer) (mL/min) >60 Glucose (70 - 110 mg/dL) 172 Plasma Calcium (8.5 - 10.1 mg/dL) 7.4 Hematology WBC (4.5 - 11.5 K/uL) 9.7 RBC (4.00 - 5.20 M/uL) 3.14 Hgb (12.0 - 16.0 gm/dL) 11.3 9.7 Hct (36.0 - 46.0 %) 34.3 29.8 MCV (80 - 100 fL) 95 MCH (26 - 34 pg) 31 RDW (11.6 - 14.8 %) 13.4 Neut % (Auto) (50 - 75 %) 56.4 Lymph % (Auto) (25 - 40 %) 36.9 [place] % (Auto) (3 - 14 %) 6.2 Eos % (Auto) (0 - 4 %) 0.2 Baso % (Auto) (0 - 2 %) 0.3 Plt Count, EDTA (150 - 400 K/uL) 85 PUBS MCHC (31 - 37 g/dL) 33 Microbiology Date/Time Procedure - Status Source Growth 11/02 0000 MRSA Screen - RECD NASAL Assessment and Plan Problem List 1. Closed right hip fracture Plan Closed fracture on the right, stabilized. Followed by orthopedic surgery. 2. Hypertension Plan Mildly elevated blood pressure. Goal: pressure is between 120-135. Systolic Reduce salt in diet. 3. Diabetes mellitus Plan Sugar goals between 120-160. Moderate scale being used. 4. Hyperlipidemia Plan Fat reduced diet 5. Seizure disorder Plan Current status: Fair Anticipated discharge date: 1-2 days Anticipated discharge placement: Home Patient care time: Time spent in chart review, patient interview, physical exam, CPOE, and care documentation: 25 minutes Visit to patient today: 1 Complexity of care: Mild 6. Fall Plan She has a history of falls and also double breaks in the right hip and femur. Should assess and watch patient. Recommending patient services physical therapy. Patient is doing quite well, may consider home discharge. E&M Codes Rounding: Obsv-Comp/High/[id number]
--- NOTE | 2016-11-02 10:00 | NUR ---
PT TOLERATING PAIN MEDICAITONS WELL. VSS. A/OX4. NO EDEMA TO LE. ABLE TO MOVE TOES BILATERALLY, PEDAL PULSES PRESENT. R HIP DSG D/C/I. ICE TO HIP.
--- NOTE | 2016-11-02 10:39 | NUR ---
NARCAN 0.04 MG IV Q2MIN WITH THE TOTAL DOSE OF NARCAN 0.68 MG IV WAS GIVEN IN PACU PER ANESTESIA ORDER. ESMOLOL 10 MG IV Q5MIN WITH THE TOTAL DOSE OF ESMOLOL 100 MG IV WAS GIVEN IN PACU PER ANESTESIA ORDER.
--- NOTE | 2016-11-02 11:11 | NUR ---
PT ARRIVED TO PACU EASELY AROUSABLE AT 1600. PT DENIES NAUSEA. PT STATES MILD RIGHT HIP PAIN. BP 223/70. ANESTESIA PROVIDER NOTIFIED AND AWARE. PT'S DAUGHTER PRESENT IN PACU. AT 1644 PT STATED MODERATE RIGHT HIP PAIN AND ASKED FOR PAIN MEDICATION. FENTANYL 12.5 MG IV WAS GIVEN FOR PAIN RELIEF. SHORTLY AFTER PAIN MEDICATION ADMINISTRATION PT'S RESPIRATORY RATE SLOWED DOWN. LMA WAS PUT IN BY ANESTESIA PROVIDER TO HELP PT VENTIALTE. PT WAS TRANSPORTED TO CCU AT 1840. AT THE TIME OF D/C FROM PACU PT IS AWAKE AND ALERT. PT IS ORIENTED TO DATE, TIME AND PLACE. VSS. OFIRMEV 224ML IV WAS GIVEN FOR MODERATE RIGHT HIP PAIN WITH SOME RELIEF. RIGHT HIP DRESSING IS CLEAN AND DRY. ALLEN CATHETER IS IN PLACE, SECURED. U/O 450ML OF STRAW URINE. REPORT GIVEN TO ASHLEY AGUILAR
--- NOTE | 2016-11-02 11:41 | ED MAR SUMMARY ---
..... Medication Administration Record [facility] [address] [place] [address] Patient: LEANN TORRES Visit ID: [id number] 86y, F Weight: 40.8 kg Height/Length: 62 in BMI: 16.5 ALLERGIES: Codeine, Sulfa Antibiotics Start 22:30 10/31/2016 Ainsley Arora RMegNMeg, Continued Upon Admission 23:37 10/31/2016 Ainsley Arora RTessy Medication Administered: IV NS (SALINE), Dose: IV Fluids, Rate: 100 mL/hr, Dispensed: 1000 mL bag, Site: #1 right AC. Medication Ordered: IV NS : initial bolus none -, then 100 mL/hr for 6h (NOW); Routine. Given 22:31 10/31/2016 Ainsley Arora, R.N. Medication Administered: DEMEROL [IVP] (MEPERIDINE HCL), Dose: 12.5 mg IVP over 1 minute(s), Site: #1 right AC. Medication Ordered: Demerol IV 12.5 mg (NOW).
--- NOTE | 2016-11-02 11:41 | ED MED RECONCILIATION SUMMARY ---
Patient: LEANN TORRES Medication Reconciliation Report [facility] VisitID: [id number] [place] [address] 86y, F Registration Date/Time: 10/31/2016 Weight: 40.8 kg Height/Length: 62 in. BMI: 16.5 ALLERGIES: Codeine, Sulfa Antibiotics The patient's Home Medications are listed below: THE FOLLOWING MEDICATIONS NEED TO BE RECONCILED: Aspirin Oral (81 mg) 1 tablet, daily Citalopram Hydrobromide Oral (20 mg) 1 tablet, day Divalproex Sodium Oral (250 mg) 1 tablet, day Losartan Potassium Oral (100 mg) 1 tablet, daily MetFORMIN HCl Oral 500 mg, 3x a day Metoprolol Succinate ER Oral 500mg, daily Simvastatin Oral 20 mg, daily TraZODone HCl Oral 50 mg, daily The source(s) of the original Home Medication information: Not obtained. The following Medications were given to the patient in the Emergency Department: IV NS IV Fluids bolus 0, then 100 mL/hr, administered: 10/31/2016 10:30:00 PM Demerol [IVP] IVP 12.5 mg, administered: 10/31/2016 10:31:00 PM The following Medications were prescribed to the patient: None.
--- NOTE | 2016-11-02 11:41 | ED MAR SUMMARY ---
..... Medication Administration Record [facility] [address] [place] [address] Patient: LEANN TORRES Visit ID: [id number] 86y, F Weight: 40.8 kg Height/Length: 62 in BMI: 16.5 ALLERGIES: Codeine, Sulfa Antibiotics Start 22:30 10/31/2016 Ainsley Arora RMegNMeg, Continued Upon Admission 23:37 10/31/2016 Ainsley Arora RTessy Medication Administered: IV NS (SALINE), Dose: IV Fluids, Rate: 100 mL/hr, Dispensed: 1000 mL bag, Site: #1 right AC. Medication Ordered: IV NS : initial bolus none -, then 100 mL/hr for 6h (NOW); Routine. Given 22:31 10/31/2016 Ainsley Arora, R.N. Medication Administered: DEMEROL [IVP] (MEPERIDINE HCL), Dose: 12.5 mg IVP over 1 minute(s), Site: #1 right AC. Medication Ordered: Demerol IV 12.5 mg (NOW).
--- NOTE | 2016-11-02 11:41 | ED DISCHARGE INSTRUCTIONS ---
Patient: LEANN TORRES General Instructions [facility] VisitID: [id number] [place] [address] 86y, F Registration Date/Time: 10/31/2016 Closed displaced and mildly angulated fracture of the subcapital neck of the right femur. Fall on same level by tripping. ADDITIONAL INFORMATION Mechanical Fall You have had a fall today. It appears that the cause is mechanical. That means that you slipped, tripped or lost your balance. If your fall had been due to fainting or a seizure, further tests would be required. Home Care: Rest today and resume your normal activities when you are feeling back to normal. If you were injured during the fall, follow the advice from your doctor regarding care of your injury. You may use acetaminophen (Tylenol) or ibuprofen (Motrin, Advil) to control pain, unless another pain medicine was prescribed. [NOTE: If you have chronic liver or kidney disease or ever had a stomach ulcer or GI bleeding, talk with your doctor before using these medicines.] Fall Prevention: Was there anything that caused your fall that can be fixed, removed, or replaced? Make your home safe by keeping walkways clear of objects you may trip over. Use non-slip pads under rugs. Do not walk in poorly lit areas. Do not stand on chairs or wobbly ladders. Use caution when reaching overhead or looking upward. This position can cause a loss of balance. Be sure your shoes fit properly, have non-slip bottoms and are in good condition. Be cautious when going up and down curbs, and walking on uneven sidewalks. If your balance is poor, consider using a cane or walker. Stay as active as you can. Balance, flexibility, strength, and endurance all come from exercise. They all play a role in preventing falls. Follow Up with your doctor or as advised by our staff. Get Prompt Medical Attention if any of the following occur: Repeated mechanical falls, or unexplained falls Dizziness, fainting or seizure Severe headache Chest pain or shortness of breath Palpitations (very rapid or very slow or irregular heartbeat) Blood in vomit, stools (black or red color) Weakness of an arm or leg or one side of the face Difficulty with speech or vision Fracture: Lower Extremity You have a break (fracture) of the leg. A fracture is treated with a splint or cast or special boot. It will take at about 4-6 weeks for the fracture to heal. Surgery may be needed to fix severe injuries. Home Care: You will be given a splint, cast, boot, or other device to prevent movement at the site of injury. Unless you were told otherwise, use crutches or a walker and do not bear weight on the injured leg until cleared by your doctor to do so. (Crutches and walkers can be rented at many pharmacies and surgical/orthopedic supply stores). Keep your leg elevated to reduce pain and swelling. When sleeping, place a pillow under the injured leg. When sitting, support the injured leg so it is level with your waist. This is very important during the first 48 hours. Apply an ice pack (ice cubes in a plastic bag, wrapped in a towel) over the injured area for 20 minutes every 1-2 hours the first day. You can place the ice pack directly over the splint/cast. Continue with ice packs 3-4 times a day for the next two days, then as needed for the relief of pain and swelling. Keep the cast/splint/boot completely dry at all times. Bathe with your cast/splint/boot out of the water, protected with a large plastic bag, rubber-banded at the top end. If a boot or fiberglass cast/splint gets wet, you can dry it with a hair-dryer. You may use acetaminophen (Tylenol) or ibuprofen (Motrin, Advil) to control pain, unless another pain medicine was prescribed. [NOTE: If you have chronic liver or kidney disease or ever had a stomach ulcer or GI bleeding, talk with your doctor before using these medicines.] Follow Up with you doctor in one week, or as advised by our staff, to be sure the bone is healing properly. If a splint was applied, it may be converted to a cast at your next visit. [NOTE: A radiologist will review any X-rays that were taken. We will notify you of any new findings that may affect your care.] Get Prompt Medical Attention if any of the following occur: The plaster cast or splint becomes wet or soft The fiberglass cast or splint remains wet for more than 24 hours Increased tightness or pain under the cast or splint Toes become swollen, cold, blue, numb or tingly You have been given the following additional information: Fall, Mechanical Fracture, Lower Extremity (Electronically signed by Natan Dela Cruz MD 11/02/2016 11:41)
--- NOTE | 2016-11-02 11:41 | ED MED RECONCILIATION SUMMARY ---
Patient: LEANN TORRES Medication Reconciliation Report [facility] VisitID: [id number] [place] [address] 86y, F Registration Date/Time: 10/31/2016 Weight: 40.8 kg Height/Length: 62 in. BMI: 16.5 ALLERGIES: Codeine, Sulfa Antibiotics The patient's Home Medications are listed below: THE FOLLOWING MEDICATIONS NEED TO BE RECONCILED: Aspirin Oral (81 mg) 1 tablet, daily Citalopram Hydrobromide Oral (20 mg) 1 tablet, day Divalproex Sodium Oral (250 mg) 1 tablet, day Losartan Potassium Oral (100 mg) 1 tablet, daily MetFORMIN HCl Oral 500 mg, 3x a day Metoprolol Succinate ER Oral 500mg, daily Simvastatin Oral 20 mg, daily TraZODone HCl Oral 50 mg, daily The source(s) of the original Home Medication information: Not obtained. The following Medications were given to the patient in the Emergency Department: IV NS IV Fluids bolus 0, then 100 mL/hr, administered: 10/31/2016 10:30:00 PM Demerol [IVP] IVP 12.5 mg, administered: 10/31/2016 10:31:00 PM The following Medications were prescribed to the patient: None.
--- NOTE | 2016-11-02 13:27 | NUR ---
NUTRITION FOLLOW UP NOTE: Mighty shakes q meal and BOOST glucose control in place per nsg. Good to see ~100% of breakfast this a.m. RD to follow up and monitor nutriton indices prn/protocol.
--- NOTE | 2016-11-02 18:05 | NUR ---
PT CONTINUES TO DO WELL, ABLE TO AMBULATE TO CHAIR WITH 2 PERSON STANDBY ASSIST AND WALKER. PAIN CONTROLLED. DSG REMAINS D/C/I. ICE TO HIP INTERMITTENTLY. VSS. WILL CONTINIUE TO MONOITOR.
[2016-11-03] VITALS (7 sets, daily range): BP systolic 117–169; BP diastolic 46–57
--- NOTE | 2016-11-03 07:21 | Progress Note ---
Subjective General Note Date: November 02, 2016 Admission Date: November 01, 2016 Hospital Day: 2 PCP: Chandrika Gallegos Status: Inpatient AC. Advanced Directive: FULL CODE Room: 306 Breif History 86-year-old female with a past medical history of hypertension diabetes and hyperlipidemia that is presenting with mechanical fall at home resulting in a right hip fracture. She was seen in the emergency department fracture was diagnosed. Orthopedic surgery was consulted. An admission through Dr. Campbell Qiu M.D. Subjective: Patient had some troubles with eating last night. Patient had a piece of 4 food stuck in her throat. Patient has a history of esophageal strictures. Suctioning was attempted. Patient also had slight emesis during her effort to remove the food particle. Patient otherwise feeling well. No complaints of intractable hip pain, breathing well concerns. In addition, patient is complaining of drainage from the left eye Patient requests none Physical Exam Vital Signs / I&Os Vital Signs Date Time Temp Pulse Resp B/P Pulse O2 O2 Flow FiO2 Ox Delivery Rate 11/03 0645 98.4 68 16 154/54 97 Nasal 0.0 Cannula 11/03 0205 99.1 73 16 117/46 97 Nasal 0.0 Cannula 11/02 2242 99.5 78 16 158/54 96 Nasal 0.0 Cannula 11/02 2046 169/63 11/02 2029 Nasal Cannula 11/02 1943 99.9 71 16 183/69 99 Nasal 0.0 Cannula 11/02 1432 99.3 65 19 110/41 98 Nasal 0.0 Cannula 11/02 1118 98.4 70 16 121/50 94 Nasal 0.0 Cannula 11/02 0807 2.0 11/02 0800 71 23 188/70 94 Nasal Cannula I&O 11/02 0800 11/02 1600 11/03 0000 Intake Total 240 480 120 Output Total 100 325 225 Balance 140 155 -105 General Appearance Oriented X3, Cooperative HEENT redness in the left conjunctiva, exudate, erythema Lungs Clear to auscultation Neck Supple Abdomen Soft Extremities No edema, Normal pulses Skin No Rashes Psych/Mental Status Mental status normal LAB Results Laboratory Tests 11/03 0510 Chemistry Plasma Sodium (136 - 145 mmol/L) 140 Plasma Potassium (3.5 - 5.1 mmol/L) 4.0 Plasma Chloride (98 - 107 mmol/L) 104 CO2 (Enzymatic) (21 - 32 mmol/L) 30 BUN (7 - 18 mg/dL) 24 Creatinine (0.6 - 1.3 mg/dL) 0.9 Est GFR ( Amer) (mL/min) >60 Est GFR (Non-Af Amer) (mL/min) >60 Glucose (70 - 110 mg/dL) 172 Plasma Calcium (8.5 - 10.1 mg/dL) 8.0 Hematology WBC (4.5 - 11.5 K/uL) 10.6 RBC (4.00 - 5.20 M/uL) 2.93 Hgb (12.0 - 16.0 gm/dL) 9.0 Hct (36.0 - 46.0 %) 27.9 MCV (80 - 100 fL) 95 MCH (26 - 34 pg) 31 RDW (11.6 - 14.8 %) 13.7 Neut % (Auto) (50 - 75 %) 56.4 Lymph % (Auto) (25 - 40 %) 35.5 [place] % (Auto) (3 - 14 %) 7.2 Eos % (Auto) (0 - 4 %) 0.2 Baso % (Auto) (0 - 2 %) 0.7 Plt Count, EDTA (150 - 400 K/uL) 62 PUBS MCHC (31 - 37 g/dL) 32 Assessment and Plan Problem List 1. Diabetes mellitus Plan Patient is on a sliding scale for diabetic management. Stable r 2. Hyperlipidemia Plan Dietary lifestyle modifications in place. No changes 3. Hypertension Plan Elevated blood pressure yesterday afternoon. Appears to have normal monitor control. Patient had a hypotensive episode yesterday. Hypotension from giving some pain beyond her tolerance. 4. Closed right hip fracture Plan Followed by orthopedic surgery. Appears to have good healing. Physical therapy has been addressing basic needs. 5. Seizure disorder Plan Monitoring for any activity of seizures. 6. Conjunctivitis Plan Patient with conjunctivitis, left side. Appropriate treatment. 7. Dysphagia Plan Seen by speech and swallow. Patient's food is being converted to mechanical soft. Caution is advised with fluids. E&M Codes Rounding: Inpt-High/[id number]
--- NOTE | 2016-11-03 08:08 | Progress Note ---
Subjective General VSS Afeb Tmax 99.9 WBC 10.6 Hgb 9.0 Platelets 62K FBS 172 Calcium 8.0 BUN 24 Cr 0.9 Better today with less pain. Eating well. Doing OK with PT May transfer to SNF when bed available DC Lovenox due to low platelets Continue insulin sliding scale. Continue PT DC IV.
--- NOTE | 2016-11-03 08:12 | Provider's Discharge Care Plan ---
Problem, Goal, Plan Problem List 1. Fall 2. Closed right hip fracture 3. Hypertension 4. Diabetes mellitus 5. Hyperlipidemia 6. Seizure disorder
--- NOTE | 2016-11-03 08:12 | Provider's Discharge Care Plan ---
Problem, Goal, Plan Problem List 1. Fall 2. Closed right hip fracture 3. Hypertension 4. Diabetes mellitus 5. Hyperlipidemia 6. Seizure disorder
--- NOTE | 2016-11-03 09:56 | NUR ---
Pt presents with closed right hip fracture. Med hx sig for esophageal dilitation. Pt reported ongoing difficulty with swallowing "heavy foods and meats". Pt reported globus sensation and choking on those textures. OME revealed full upper denture and many missing bottom teeth. Voice and cough were WFL. All proffered substances were swallowed without s/s of aspiration. Due to pt report and hx, dysphagia mechanical textures and thin liquids are recommended at this time. Discussed with pt, who reported understanding and agreement. Handouts were given for family upon discharge. Discussed with RN. No other acute GRAPHOTYPE OPERATOR needs at this time. Please reorder with new or worsening condition.
--- NOTE | 2016-11-03 10:08 | NUR ---
pt sitting in chair upon entering room. 2PA Min A sit to stand with FWW. v/c for hand placement. pt then completed step pivot transfer to the [facility]. v/c for hand placement and to move right leg out as she sits. A given to move R leg out. Once finished on [facility] pt completed sit to stand 1PA Min A with v/c given for hand placement and intial standing balance. pt ambulated 5 ft to the bed CGA using a FWW. pt needed v/c for the turn and for hand placement and to move right leg out. pt sat with CGA. Min A for BLE given. pt's mobility has improved from initial evaluation but pt requires a short term stay at a SNF with PT for safe transfers and increase gait distance prior to returning home.
--- NOTE | 2016-11-03 11:01 | NUR ---
NUTRITON FOLLOW UP NOTE: Pt seen by DIRECTOR HOSPICE OPERATIONS today, previously [facility] soft diet and now dys [facility] diet with thin liquids. Pt ate ~100% of breakfast this am. Per pt may d/c to SNF today. RD avail for further consult if desired.
--- NOTE | 2016-11-03 17:43 | NUR ---
GOOD CMS CHECKS TO R LEG, HAS BRACE ON R LEG, DRESSING C,D,I. HAS BEEN UP TO CHAIR FOR ALL MEALS, ALLEN CATH PULLED THIS AM BUT HAS NOT BEEN ABLE TO VOID YET. WILL BLADDER SCAN AFTER DINNER IF SHE IS STILL UNABLE TO VOID AND WILL BE CATHED IF NEEDED. A/OX3, CALM, PLEASENT AND COOPERATIVE.
--- NOTE | 2016-11-03 18:07 | Discharge Summary ---
Discharge Summary Report Admit Date 10/31/16 Discharge Date 11/04/16 Admission Diagnosis 1. Closed right hip fracture. 2. Fall. 3. Hypertension. 4. Diabetes mellitus 5. Seizure disorder. 6. Hyperlipidemia Discharge Diagnosis 1. Closed right hip fracture. 2. Fall. 3. Hypertension. 4. Diabetes mellitus 5. Seizure disorder. 6. Hyperlipidemia Brief History Patient is an 86-year-old female with a past medical history of hypertension diabetes and hyperlipidemia that is presenting with mechanical fall at home resulting in a right hip fracture. Patient has been in her usual state of health for the past few years with no major incidences. She has been in good health has been following up with doctors regularly and has been compliant with her medication regimen. Patient was at home today ambulatory as she usually is when she suffered a mechanical fall and fell on her right side. There were no issues surrounding the fall patient had appropriate mentation during the fall itself and immediately after. She did not lose consciousness or did not have any sort of surrounding events that would predispose her to fall. When patient fell her daughter was nearby and immediately came to her attention. Patient was admitted to the ER had adequate pain control and no surrounding pathologies with this admission. Patient was admitted by Dr. aCmpbell Qiu M.D., Patient was consulted by orthopedic surgery, Dr. Penny MD. Hospital Course Patient was admitted initially with fracture to the right hip. Patient was consulted by orthopedic surgeon, Dr. Edmund Francis MD. Orthopedic stabilized overnight and she was taken to operating room the next day for a right hip rivera-arthroplasty. Patient tolerated the procedure well. However, patient during recovery received small amount of fentanyl. The patient became obtunded and was revised.. Patient was taken to the ICU following the event. The patient since has been stable. Patient had minimal complaints of hip pain. Patient was monitored and pain control. Patient had eye irritation, drainage, diabetes with a conjunctivitis. Patient was given drops slowly. This is improved. Patient during episode of eating, was unable to clear her throat with foom a food bolus. Patient has a history of stricture. Patient had suctioning performed and generally improved. Patient had good by mouth intake. Normal urination. Patient was followed by orthopedic through the process of recovery. Patient was visited by physical therapy for strengthening and transition training. Patient's blood sugars and blood pressure were controlled. Patient was discharged to an acute care facility for rehabilitation. General Appearance Oriented X3, Cooperative HEENT EOMI Lungs Normal air movement Cardiovascular Normal S1, Normal S2, No murmurs Abdomen Soft, No tenderness Skin No Rashes Neurological Normal speech, Normal tone Psych/Mental Status Mental status NL, Mood NL Lab/Imaging Laboratory Tests 11/04 0520 Chemistry Plasma Sodium (136 - 145 mmol/L) 138 Plasma Potassium (3.5 - 5.1 mmol/L) 3.8 Plasma Chloride (98 - 107 mmol/L) 102 CO2 (Enzymatic) (21 - 32 mmol/L) 29 BUN (7 - 18 mg/dL) 19 Creatinine (0.6 - 1.3 mg/dL) 0.8 Est GFR ( Amer) (mL/min) >60 Est GFR (Non-Af Amer) (mL/min) >60 Glucose (70 - 110 mg/dL) 157 Plasma Calcium (8.5 - 10.1 mg/dL) 8.3 Plasma Magnesium (1.8 - 2.4 mg/dL) 1.4 Total Bilirubin (0.0 - 1.0 mg/dL) 0.6 AST (15 - 37 U/L) 64 ALT (12 - 78 U/L) 136 Alkaline Phosphatase (46 - 116 U/L) 93 Total Protein (6.4 - 8.2 g/dL) 4.8 Albumin (3.3 - 5.0 g/dL) 2.4 Hematology WBC (4.5 - 11.5 K/uL) 10.2 RBC (4.00 - 5.20 M/uL) 2.97 Hgb (12.0 - 16.0 gm/dL) 9.3 Hct (36.0 - 46.0 %) 28.2 MCV (80 - 100 fL) 95 MCH (26 - 34 pg) 31 RDW (11.6 - 14.8 %) 13.7 Neut % (Auto) (50 - 75 %) 55.6 Lymph % (Auto) (25 - 40 %) 36.2 [place] % (Auto) (3 - 14 %) 7.1 Eos % (Auto) (0 - 4 %) 1.0 Baso % (Auto) (0 - 2 %) 0.1 Plt Count, EDTA (150 - 400 K/uL) 82 PUBS MCHC (31 - 37 g/dL) 33 10/31/2016 (hip x-ray) IMPRESSION: 1. Impacted subcapital right femoral neck fracture. 2. Mild demineralization. 11/01/2016 (hip X-ray) IMPRESSION: 1. Total hip replacement on the right. Discharge Instructions/Meds 86-year-old female who sustained a hip fracture on the right on 10/31/2016 and subsequent rivera-arthroplasty on 11/01/16. Patient is discharged to the [facility]. Patient will be under the attending of Dr. Flaco Ward M.D. Patient is discharged for PT, OT strengthening and transfer training protocol. Patient has recommendations to maintain a mechanical soft diet with thin liquids. Patient may advance after appropriately evaluating swallow. Continue with the home medication which include: Citalopram to 20 mg by mouth daily, Divalproexm 250mg po daily, metformin 500 mg po 3 times a day, simvastatin 30 mg po daily, trazodone 50 mg po at bedtime, losartan 100 mg by mouth daily. Metoprolol 100 mg by mouth daily. Aspirin 81 mg daily. Follow-up guidelines for post orthopedic procedure should be discussed with orthopedic surgery. Guidelines are in force should be posted by orthopedics. Review the discharge recommendations by orthopedic surgery (Dr. Edmund Francis) . The patient on physical therapy sterilization. Maintain and reviewed psychiatric profile. Discharge home once stable.
[2016-11-04 02:29] VITALS: BP 149/57
--- NOTE | 2016-11-04 05:05 | NUR ---
MD NOTIFIED OF PT'S LOW UO AND BLADDER SCAN SHOWED 750ML OF URINE. ORDERS RECEIVED TO PLACE A ALLEN.
[2016-11-04 06:54] VITALS: BP 138/59
--- NOTE | 2016-11-04 06:58 | Progress Note ---
Subjective General Note Date: November 04, 2016 Admission Date: November 01, 2016 Hospital Day: 4 PCP: Chandrika Gallegos Status: Inpatient AC. Advanced Directive: FULL CODE Room: 306 Bre History 86-year-old female with a past medical history of hypertension diabetes and hyperlipidemia that is presenting with mechanical fall at home resulting in a right hip fracture. She was seen in the emergency department fracture was diagnosed. Orthopedic surgery was consulted. An admission through Dr. Campbell Qiu M.D. Subjective: Patient is seen at bedside today. Patient spent followed by orthopedics. Orthopedics has anticipating discharge to a rehabilitation facility. Awaiting placement at this time. Patient is comfortable overnight. Potassium is a little low. This will be replaced. Patient not having good bowel movements. Patient will be given either enema or embolism. Patient pain with movement. Patient requests Treatment for Constipation Physical Exam Vital Signs / I&Os Vital Signs Date Time Temp Pulse Resp B/P Pulse O2 O2 Flow FiO2 Ox Delivery Rate 11/04 0654 98.4 18 138/59 99 Room Air 0.0 11/04 0229 98.1 70 18 149/57 98 Room Air 11/03 2235 98.4 72 20 145/52 98 Room Air 11/03 2119 Room Air 11/03 1812 99.9 75 24 169/57 100 11/03 1408 98.8 71 24 160/53 98 Room Air 0.0 11/03 1206 69 135/51 98 Room Air 0.0 11/03 1054 97.7 72 21 169/56 100 Room Air 0.0 11/03 0902 Room Air I&O 11/03 0800 11/03 1600 11/04 0000 Intake Total 939 420 200 Output Total 150 125 300 Balance 789 295 -100 General Appearance Oriented X3, Cooperative HEENT EOMI Lungs Normal air movement Abdomen protuberant, nondistended, soft. Tenderness. Extremities casted right lower extremity Skin No Rashes, No Breakdown Psych/Mental Status Mood normal LAB Results Laboratory Tests 11/04 0520 Chemistry Plasma Sodium (136 - 145 mmol/L) 138 Plasma Potassium (3.5 - 5.1 mmol/L) 3.8 Plasma Chloride (98 - 107 mmol/L) 102 CO2 (Enzymatic) (21 - 32 mmol/L) 29 BUN (7 - 18 mg/dL) 19 Creatinine (0.6 - 1.3 mg/dL) 0.8 Est GFR ( Amer) (mL/min) >60 Est GFR (Non-Af Amer) (mL/min) >60 Glucose (70 - 110 mg/dL) 157 Plasma Calcium (8.5 - 10.1 mg/dL) 8.3 Plasma Magnesium (1.8 - 2.4 mg/dL) 1.4 Total Bilirubin (0.0 - 1.0 mg/dL) 0.6 AST (15 - 37 U/L) 64 ALT (12 - 78 U/L) 136 Alkaline Phosphatase (46 - 116 U/L) 93 Total Protein (6.4 - 8.2 g/dL) 4.8 Albumin (3.3 - 5.0 g/dL) 2.4 Hematology WBC (4.5 - 11.5 K/uL) 10.2 RBC (4.00 - 5.20 M/uL) 2.97 Hgb (12.0 - 16.0 gm/dL) 9.3 Hct (36.0 - 46.0 %) 28.2 MCV (80 - 100 fL) 95 MCH (26 - 34 pg) 31 RDW (11.6 - 14.8 %) 13.7 Neut % (Auto) (50 - 75 %) 55.6 Lymph % (Auto) (25 - 40 %) 36.2 [place] % (Auto) (3 - 14 %) 7.1 Eos % (Auto) (0 - 4 %) 1.0 Baso % (Auto) (0 - 2 %) 0.1 Plt Count, EDTA (150 - 400 K/uL) 82 PUBS MCHC (31 - 37 g/dL) 33 Assessment and Plan Problem List 1. Closed right hip fracture Plan Followed by orthopedic surgery. Fracture stabilized. Patient is up in moving. Weightbearing with walker. Anticipating discharge to rehabilitation facility today. 2. Hypertension Plan Monitor blood pressure. Avoiding high sodium diet. Stable overnight. 3. Diabetes mellitus Plan Dietary changes implemented. Patient is on a sliding scale with insulins. 4. Hyperlipidemia Plan Cholesterol management through diet. 5. Conjunctivitis Plan Resolving. Continue with the drops as prescribed 6. 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 Currently on mechanical soft. 7. Seizure disorder Plan Current status: Improving stable Anticipated discharge date: 11/04/2016 Anticipated discharge placement: Acute rehabilitation facility Patient care time: Time spent in chart review, patient interview, physical exam, CPOE, and care documentation: 25 minutes Visit to patient today: 2 Complexity of care: Mild Moderate. E&M Codes Rounding: Inpt-Moderate/[id number]
--- NOTE | 2016-11-04 08:41 | Progress Note ---
Subjective General VVSS Afeb Tmax 99.9 WBC 10.2 Hgb 9.3 Platelets 82K BUN 19 Cr 0.8 FBS 157 Calcium 8.3 No c/o, mild pain. Sitting up and eating breakfast. Doing well with PT. To rehab today.
[2016-11-04] MEDS ORDERED: GENTAK0.3 % OP (08:42)
[2016-11-04] MEDS ORDERED: TUMS500 MG PO (08:43)
[2016-11-04] MEDS ORDERED: OXYCODONE/ACETA1 TA1 PO (08:43)
[2016-11-04 10:01] VITALS: BP 170/53
--- NOTE | 2016-11-04 10:47 | NUR ---
pt d/c-ing to SNF.
[2016-11-04 11:03] VITALS: BP 127/45
[2016-11-04 14:24] VITALS: BP 137/49
--- NOTE | 2016-11-04 15:52 | NUR ---
A/OX3, CALM ,COOPERATIVE. BS CTA, EATING WELL, VOIDING WELL VIA ALLEN, HAD 2 BM TODAY. ABLE TO TRANSFER IN/OUT OF BED/CHAIR WITH ONE ASSIST USING WALKER. GOOD CMS CHECK TO R LEG, R HIP DRESSING C,D,I. REPORT CALLED TO [facility]. TAKEN OUT TO [facility].
== END 2016-11-04 15:45 | DRG 470 ==
LOC: ED SRH 19:40 → TRANS SRH 22:07 → ACUTE2 SRH 23:55 → CC SRH 11-01 18:19
PROVIDERS: Orthopaedic Surgery; ADMIT Internal Medicine
PROC: 0SRR0JA Replacement of Right Hip Joint, Femoral Surface with Synthetic Substitute, Uncemented, Open Approach (ICD-10-PCS; principal; 2016-11-01 13:45)
DX: S72.011A Unspecified intracapsular fracture of right femur, initial encounter for closed fracture (principal); W10.8XXA Fall (on) (from) other stairs and steps, initial encounter; Y92.009 Unspecified place in unspecified non-institutional (private) residence as the place of occurrence of the external cause; R06.81 Apnea, not elsewhere classified; T40.4X5A Adverse effect of other synthetic narcotics, initial encounter; R13.10 Dysphagia, unspecified; K22.2 Esophageal obstruction; H10.9 Unspecified conjunctivitis; Y99.8 Other external cause status; G40.909 Epilepsy, unspecified, not intractable, without status epilepticus; E78.5 Hyperlipidemia, unspecified; E11.9 Type 2 diabetes mellitus without complications; Z79.84 Long term (current) use of oral hypoglycemic drugs

== ENCOUNTER 2016-12-13 21:31 | Inpatient (IN) | payer OTHER, BC ==
[~2016-12-13] VITALS: Ht 157.5 cm; Wt 47.6 kg
[~2016-12-13 21:31] MED LIST: ASPIRIN 81 LOW81 MG PO; CITALOPRAM HYDR20 MG PO; COZAAR100 MG PO; DEPAKOTE ER250 MG PO; GENTAK0.3 % OP; GLUCOPHAGE500 MG PO; METOPROLOL SUCC25 MG PO; OXYCODONE/ACETA1 TA1 PO; SIMVASTATIN20 MG PO; TRAZODONE HCL50 MG PO; TUMS500 MG PO
--- NOTE | 2016-12-13 23:13 | ED CLINICAL REPORT ---
Clinical Report - Physicians/Mid Levels [facility] [address] [place] [address] 12/13/2016 21:31 Patient: LEANN TORRES Time Seen: 21:41. Arrived- By private vehicle. Historian- patient and daughter. HISTORY OF PRESENT ILLNESS Chief Complaint: FOREIGN BODY SENSATION IN THROAT. This started today and is still present. It was abrupt in onset and has been constant. There has been no pain. (the patient has a past history of difficulty with swallowing. Her daughter reports that she has had 4 esophageal dilations in the past. Apparently, this evening she ate a bite of hamburger that "didn't go down." Her daughter heard her gagging and noticed that she was bringing up large amounts of phlegm. The patient says these symptoms are similar to past events). Similar symptoms previously: REVIEW OF SYSTEMS No chills, fever, sweats, calf pain or chest pain. No cough, difficulty breathing, pedal edema, palpitations or abdominal pain. No constipation, nausea or vomiting. She has had mild loose stools. This has occurred only once. She has had urinary problems (more confusion than usual per daughter, she is suspecting a UTI,). All systems otherwise negative, except as recorded above. PAST HISTORY PCP - MAYURI DHALIWAL. Problems: Femur Fracture. Hypertension. Syncope. Fall. Hypothermia. Bipolar Disorder. CVA - Cerebrovascular Accident. Fever. Headache. Ca colon, breast . Diabetes Mellitus. Hiatal Hernia. Additional Surgeries: Appendectomy. Cholecystectomy. Endoscopy. Esophageal Dilatation. Hysterectomy. Mastectomy. Tonsillectomy. Medications: Aspirin Oral (Tablet 81 mg) 1 tablet, daily. Citalopram Hydrobromide Oral (Tablet 20 mg) 1 tablet, day. Divalproex Sodium Oral (Tablet Delayed Release 250 mg) 1 tablet, day. Losartan Potassium Oral (Tablet 100 mg) 1 tablet, daily. MetFORMIN HCl Oral 500 mg, 3x a day. Metoprolol Succinate ER Oral 500mg, daily. Simvastatin Oral 20 mg, daily. TraZODone HCl Oral 50 mg, daily. Allergies: Codeine. morphine. Sulfa Antibiotics. SOCIAL HISTORY Never smoker. History of drug use: marijuana. No alcohol use. FAMILY HISTORY No significant family medical history. ADDITIONAL NOTES The nursing notes have been reviewed. PHYSICAL EXAM Vital Signs: 12/13/2016 21:35 BP: 143/59. HR: 75. RR: 16. O2 saturation: 95%. Temp: 98.3 F. Savage-Whaley pain scale: 0/10. Have been reviewed. Appearance: Alert. She is disoriented and appears frail and elderly. Eyes: Pupils equal, round and reactive to light. ENT: Ears normal. Nose normal. Pharynx normal. Gums normal. No trismus present. Uvula midline. Neck: Trachea midline. No adenopathy. Neck supple. CVS: Normal heart rate and rhythm. Heart sounds normal. Respiratory: No respiratory distress. Breath sounds normal. Abdomen: Soft and nontender. No organomegaly. Skin: Normal skin color. No rash. Normal skin turgor. Extremities: No lower extremity edema. No calf tenderness. LABS, X-RAYS, AND EKG Soft Tissue Neck X-rays: (IMPRESSION: 1. No evidence of a radiopaque foreign body). The X-rays were interpreted by the radiologist and contemporaneously by me. Chest X-ray: (IMPRESSION: 1. Stable chest 2. Elevated right hemidiaphragm). The X-rays were interpreted by the radiologist and contemporaneously by me. Laboratory Tests: UA-Culture if indicated: (EN: 12/13/2016 21:55) ( [id number] 12/13/2016 22:43) Final results Test Result Flag Units (Reference) URINE COLOR YELLOW URINE APPEARANCE SL CLOUDY URINE GLUCOSE 1+ (NEGATIVE) URINE BILIRUBIN NEGATIVE (NEGATIVE) URINE KETONE 1+ (NEGATIVE) URINE SPECIFIC GRAVITY 1.020 (1.010-1.030) URINE PH 7.0 (5.0-8.0) URINE PROTEIN 2+ (NEGATIVE) URINE UROBILINOGEN 0.2 EU/dL (0.2-1.0) URINE NITRITE NEGATIVE (NEGATIVE) URINE BLOOD 3+ (NEGATIVE) URINE LEUK ESTERASE POSITIVE (NEGATIVE) URINE RBC 10-25 rbc/hpf (0-1) URINE WBC 75-100 wbc/hpf (0-1) URINE EPITHELIAL CELLS NONE SEEN EPI/hpf (0-5) TRANSITIONAL EPITHELIAL CELLS 3-5/HPF URINE BACTERIA FEW (1+) (NONE SEEN) URINE COMMENT CULTURE INDICATED URINE CULTURES ARE SET-UP BASED ON THE FOLLOWING CRITERIA:POSITIVE NITRITEPOSITIVE LEUKOCYTE ESTERASEGREATER THAN 10 WHITE BLOOD CELLSMODERATE (2+) OR GREATER BACTERIA CBC w Diff: (EN: 12/13/2016 21:55) ( [facility] 12/13/2016 22:52) Final results Test Result Flag Units (Reference) WHITE BLOOD COUNT 29.8 *H K/uL (4.5-11.5) CRITICAL RESULTS CALLEDCalled to [facility] 12/13/16 2250Were 2 patient identifiers used? YESWas the result read back? YES RED BLOOD COUNT 3.88 L M/uL (4.00-5.20) HEMOGLOBIN 11.9 L gm/dL (12.0-16.0) HEMATOCRIT 37.0 % (36.0-46.0) MEAN CELL VOLUME 95 fL (80-100) MEAN CORPUSCULAR HGB 31 pg (26-34) MEAN CORPUSCULAR HGB CONC 32 g/dL (31-37) RED CELL DISTRIBUTION WIDTH 13.9 % (11.6-14.8) PLATELET COUNT 168 K/uL (150-400) NEUTROPHIL % 89.8 H % (50-75) LYMPH % 5.4 L % (25-40) MONO % 4.7 % (3-14) EOSINOPHIL % 0 % (0-4) BASOPHIL % 0.1 % (0-2) POLY % 73 % (50-75) BAND % 16 H % (0-8) LYMPH 7 L % (25-40) MONO 3 % (3-14) EOSINOPHIL % 1 % (0-4) BASOPHIL % 0 % (0-2) METAMYELOCYTE % 0 % (0-1) MYELOCYTE 0 % (0-1) OTHER CELL TYPE 0 CMP: (EN: 12/13/2016 21:55) ( [facility] 12/13/2016 22:42) Final results Test Result Flag Units (Reference) GLUCOSE 364 H mg/dL (70-110) BUN 30 H mg/dL (7-18) CREATININE 1.0 mg/dL (0.6-1.3) Estimated GFR 55.74 mL/min Estimated GFR- >60 mL/min Note: Persistent reduction over 3 months in eGFR<60 mL/min/1.73 m2 defines CKD. Patients with eGFR values>=60 mL/min/1.73 m2 may also have CKD if evidence ofpersistent proteinuria. Additional information may be foundat www.kidney.org. SODIUM 134 L mmol/L (136-145) POTASSIUM 3.5 mmol/L (3.5-5.1) CHLORIDE 96 L mmol/L (98-107) CARBON DIOXIDE 26 mmol/L (21-32) CALCIUM 9.5 mg/dL (8.5-10.1) TOTAL PROTEIN 7.0 g/dL (6.4-8.2) ALBUMIN 3.2 L g/dL (3.3-5.0) BILIRUBIN, TOTAL 0.5 mg/dL (0.0-1.0) ALKALINE PHOSPHATASE 64 U/L (46-116) AST (SGOT) 16 U/L (15-37) ALT (SGPT) 22 U/L (12-78) . PROGRESS AND PROCEDURES Course of Care: Patient is stable. Discussed case with hospitalist, (Flaco - he saw the patient in the ER). Reviewed test results and need for additional work-up. Agreed upon treatment plan, need for patient follow-up and decision to admit. Patient and family counseled in person regarding the patient's condition, test results and need for admission and DNR (Do Not Resuscitate) considerations for the patient. Old medical records reviewed. Disposition orders written (in [facility]). Disposition: Admitted to Acute Care. CLINICAL IMPRESSION Sepsis. Esophageal foreign body: food (passed). Urinary tract infection. (Electronically signed by Julio Ledesma MD 12/14/2016 0:31)
--- NOTE | 2016-12-13 23:13 | ED NURSING NOTES ---
Clinical Report - Nurses [facility] [address] [place] [address] 12/13/2016 21:31 Patient: LEANN TORRES TRIAGE Triage time 21:35 Dec 13 2016. Acuity: LEVEL 3. Chief Complaint: (Eating dinner tonight, coughing in room, daughter pulled her forward, patient coughing up phlegm). 21:45 12/13/16. ( Patient doesn't know day or season, she does know who the president is. Patient does know why she is here). SEPSIS SCREEN: Sepsis Screen. Negative (no infection suspected/documented). TWAN COMA SCORE: Twan Coma Scale: 14- eyes open spontaneously (4); best verbal response- disoriented (4); best motor response- obeys commands (6). --21:45 Jenny Cardona R.N. 21:35 12/13/16. BP: 143/59 (child cuff) taken on the left arm. HR: 75 (regular). RR: 16. O2 saturation: 95%. Temp: 98.3 F (oral). Savage-Whaley pain scale: 0/10. --21:45 Jenny Cardona R.N. Weight: 42.6 kg stated. Height/Length: 62 inches Per Patient. BMI: 17.2. --22:14 Jenny Cardona R.N. Medications Aspirin Oral (Tablet 81 mg) 1 tablet, daily. Citalopram Hydrobromide Oral (Tablet 20 mg) 1 tablet, day. Divalproex Sodium Oral (Tablet Delayed Release 250 mg) 1 tablet, day. Losartan Potassium Oral (Tablet 100 mg) 1 tablet, daily. MetFORMIN HCl Oral 500 mg, 3x a day. Metoprolol Succinate ER Oral 500mg, daily. Simvastatin Oral 20 mg, daily. TraZODone HCl Oral 50 mg, daily. --21:39 Jenny Cardona R.N. Allergies Codeine. Sulfa Antibiotics. --21:39 Jenny Cardona R.N. morphine. --21:42 Jenny Cardona R.N. History Arrived by private vehicle. Historian: family. Accompanied by family. This started just prior to arrival. ( Blood pressure "been wacky" per daughter. 3 hours ago 210BS.). She has had a cough. ( Patient has more confusion than usual per daughter, she is suspecting a UTI, she sees Home Health nurse tomorrow. She has recently had hip surgery). 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 PAST MEDICAL HX: Diabetes mellitus. SOCIAL HX: Never smoker. History of heavy drug use: marijuana. No alcohol use. No infectious disease exposure. ABUSE ASSESSMENT: No report of abuse. --21:45 Jenny Cardona R.N. PROBLEMS: Femur Fracture. Hypertension. Syncope. Fall. Hypothermia. Bipolar Disorder. CVA - Cerebrovascular Accident. Fever. Headache. Immunizations. LNMP - Last Normal Menstrual Period. Ca colon, breast . Diabetes Mellitus. Hiatal Hernia. --21:40 Jenny Cardona R.N. ADDITIONAL SURGERIES: Appendectomy. Cholecystectomy. Hysterectomy. Mastectomy. Tonsillectomy. --21:40 Jenny Cardona R.N. Interventions ID band on patient. To treatment room. --21:45 Jenny Cardona R.N. PHYSICAL ASSESSMENT 21:47 12/13/16. To room via wheelchair. Patient gowned. GENERAL / NEURO / PSYCH: Alert. The patient is disoriented to person, place and situation. HEENT: Pupils equal, round and reactive to light. No facial asymmetry noted. Mucous membranes are pink. RESPIRATORY: Respirations not labored. Chest nontender. Breath sounds within normal limits. CVS: Normal sinus rhythm noted. Capillary refill less than 2 seconds. Pulses within normal limits. GI / : Abdomen soft and nontender and normal bowel sounds. SKIN: Skin intact. Skin is warm and dry. --21:47 Jenny Cardona R.N. NURSING PROGRESS NOTES 21:47 12/13/16. The plan of care for this patient has been created. Monitoring of patient in place. Patient gowned. Head of bed elevated. Reassurance given. Two patient identifiers checked. Call light placed in reach. Side rails up x 1. Bed placed in lowest position. Brakes of bed on. Patient ready for evaluation- chart flagged and ED physician notified. --21:47 Jenny Cardona R.N. 22:05 12/13/2016 Site #1 started via IV in the right forearm with an 22g angiocath, with aseptic technique and good blood return; one attempt. Blood drawn: rainbow set. Labeled in the presence of the patient and sent to the lab. Saline lock flushed with 10 mL saline. --22:11 Mendy Donahue R.N. 8 fr in/out catheterization. During procedure hand hygiene observed and sterile equipment and aseptic technique used. Return of less than 50 mL yellow-colored cloudy urine; odor is normal. She tolerated procedure well (Altered mental status, suspected UTI). --22:12 Jenny Cardona R.N. ( Daughter at patients bedside). --22:16 Jenny Cardona R.N. Patient transported to radiology by stretcher with tech. (22:28 Dec 13 2016). --22:28 Jenny Cardona R.N. Patient returned from radiology by stretcher with tech. (22:35 Dec 13 2016). --22:35 Jenny Cardona R.N. 22:50 12/13/2016 Glucagon IVP 0.5 mg given over 1 minute(s) via site #1. Allergies verified and confirmed 5 rights. IV patency established. IV site checked: no pain, redness, or swelling. IV flushed thoroughly pre- and post-medication administration. IVP given by RN. --22:51 Ainsley Arora R.N. Critical value relayed to ED by Susy in lab. Critical value received by Andrei. WBC: 29.8. Critical value read back. Verified lab result. ED physician notifed of critical value (Callie). --22:52 Mendy Donahue R.N. 23:00 12/13/16. BP: 151/53 (child cuff) taken on the left arm. HR: 73. RR: 18. O2 saturation: 95% on room air. Pain level now: 0/10. --23:01 Jenny Cardona R.N. 23:01 12/13/16. --23:01 Jenny Cardona R.N. 23:14 12/13/2016 Started bag #1 1000 mL IV Fluids IV NS (Saline); bolus of 250 mL over 15 minute(s) then at 1000 mL/hr over 1 hour(s) via site #1 via IV pump. Allergies verified and confirmed 5 rights. IV patency established. IV site checked: no pain, redness, or swelling. IV flushed thoroughly pre- and post-medication administration. --23:14 Jenny Cardona R.N. 23:19 12/13/16. BP: 163/79 (child cuff) taken on the left arm. HR: 74. RR: 18. O2 saturation: 98% on room air. Pain level now: 0/10. --23:20 Jenny Cardona R.N. 23:22 Family given inpatient H&P form, declined filling it out. --23:22 Anne Mann, ER Tech1 23:31 12/13/2016 IV Fluids IV NS via IV site #1 Rate Changed: bag #1 100 mL/hr via IV pump. IV patency established. IV site checked: no pain, redness, or swelling. IV flushed thoroughly. Confirmed 5 Rights. --23:31 Jenny Cardona R.N. 23:33 12/13/2016 Started 750 mg of Levaquin (Levofloxacin) IVPB in bag #1 150 mL; at 100 mL/hr over 90 minute(s) via site #1 via IV pump. Allergies verified and confirmed 5 rights. IV patency established. IV site checked: no pain, redness, or swelling. IV flushed thoroughly pre- and post-medication administration. --23:33 Jenny Cardona R.N. 23:35 12/13/16. ( Hospitalist in with patient and her daughter). --23:35 Jenny Cardona R.N. 23:43 12/13/16. ( Patient tolerating Levaquin fine.). --23:44 Jenny Cardona R.N. 23:42 12/13/16. BP: 163/69 (child cuff) taken on the left arm. HR: 79. RR: 18. O2 saturation: 97% on room air. Pain level now: 0/10. --23:44 Jenny Cardona R.N. Critical value relayed to ED by LAB. Lactate level: 3.3. Critical value. Verified lab result and patient ID. Provider notifed of critical value. --00:02 Ainsley Arora R.N. DISPOSITION / DISCHARGE Admitted to Acute Care (203). Report was given to a nurse. Report included patient's care, treatment, medications, reviewed medication reconcilliation, and condition (including any recent changes or anticipated changes). All questions were answered. Report was acknowledged and care was transferred. (ASHLEY Bowden). Bed obtained and ready (203). Patient's personal items include, Patients daughter took all belongings home. Patient transferred with upper dentures only; items were given to the family. --23:53 Jenny Cardona R.N. 23:53 12/13/2016 Site #[address] upon transfer. Good blood return present; flushes easily. --23:53 Jenny Cradona R.N. 23:55 12/13/16. Condition at departure: unchanged. --23:55 Jenny Cardona R.N. 23:53 12/13/16. BP: 150/59 (child cuff) taken on the left arm. HR: 73. RR: 16. O2 saturation: 97% on room air. Temp: 98.7 F (oral). Pain level now: 0/10. --23:55 Jenny Cardona R.N. Departure time: 00:02. --00:02 Ainsley Arora R.N. Locked/Released at 12/14/2016 0:22 by Jenny Cardona R.N.
--- NOTE | 2016-12-13 23:14 | ED ORDER SUMMARY ---
..... Patient: LEANN TORRES OrderSheet [facility] VisitID: [id number] [place] [address] 86y, F Registration Date/Time: 12/13/2016 ORDER SHEET Weight: 42.6 kg (stated) Allergies: Codeine, Sulfa Antibiotics, morphine GENERAL ORDERS: Soft Tissue Neck Urgent (21:52 12/13/2016 Mariaelena ANDERSON) (Ack 22:00 AMcQuoid ER Tech1) (22:28 JSanders R.N.) CBC w Diff Urgent (21:52 12/13/2016 Mariaelena ANDERSON) (Ack 22:00 AMcQuoid ER Tech1) (22:11 CBradburn R.N.) CMP Urgent (21:52 12/13/2016 Mariaelena ANDERSON) (Ack 22:00 AMcQuoid ER Tech1) (22:11 CBradburn R.N.) UA-Culture if indicated Urgent (21:52 12/13/2016 Mariaelena ANDERSON) (Ack 22:00 AMcQuoid ER Tech1) (22:14 JSanders R.N.) Blood Culture (No) (N/A) Urgent (22:56 12/13/2016 Mariaelena ANDERSON) (Ack 23:06 AMcQuoid ER Tech1) (23:14 JSanders R.N.) Lactate, Serum Urgent (22:56 12/13/2016 Mariaelena ANDERSON) (Ack 23:06 AMcQuoid ER Tech1) (23:14 JSanders R.N.) Chest 1V Urgent (23:28 12/13/2016 Mariaelena ANDERSON) (Ack 23:46 AMcQuoid ER Tech1) (23:50 JSanders R.N.) MEDICATION ORDERS: Glucagon IV 0.5 mg (NOW) (22:32 12/13/2016 Mariaelena ANDERSON) (Ack 22:45 RCollier R.N.) (22:51 RCollier R.N.) IV FLUIDS: IV Saline Lock (21:52 12/13/2016 Mariaelena ANDERSON) (22:11 CBradburn R.N.) IV NS : initial bolus 250 mL (1000 mL/hr), then 100 mL/hr for 4h (NOW); Urgent (23:00 12/13/2016 Mariaelena ANDERSON) (23:14 Saida R.N.) Levaquin IV 750 mg/150 mL (NOW) (23:21 12/13/2016 Mariaelena ANDERSON) (Ack 23:21 Ciara R.N.) (23:33 Saida R.N.) ORDER SHEET NOTES: [Electronically signed by Jenny Cardona R.N. (00:22 12/14/2016)] [Electronically signed by Julio Ledesma MD (00:31 12/14/2016)] [Electronically locked/signed by Jenny Cardona R.N. (00:22 12/14/2016)]
--- NOTE | 2016-12-13 23:14 | ED ORDER SUMMARY ---
..... Patient: LEANN TORRES OrderSheet [facility] VisitID: [id number] [place] [address] 86y, F Registration Date/Time: 12/13/2016 ORDER SHEET Weight: 42.6 kg (stated) Allergies: Codeine, Sulfa Antibiotics, morphine GENERAL ORDERS: Soft Tissue Neck Urgent (21:52 12/13/2016 Mariaelena ANDERSON) (Ack 22:00 AMcQuoid ER Tech1) (22:28 JSanders R.N.) CBC w Diff Urgent (21:52 12/13/2016 Mariaelena ANDERSON) (Ack 22:00 AMcQuoid ER Tech1) (22:11 CBradburn R.N.) CMP Urgent (21:52 12/13/2016 Mariaelena ANDERSON) (Ack 22:00 AMcQuoid ER Tech1) (22:11 CBradburn R.N.) UA-Culture if indicated Urgent (21:52 12/13/2016 Mariaelena ANDERSON) (Ack 22:00 AMcQuoid ER Tech1) (22:14 JSanders R.N.) Blood Culture (No) (N/A) Urgent (22:56 12/13/2016 Mariaelena ANDERSON) (Ack 23:06 AMcQuoid ER Tech1) (23:14 JSanders R.N.) Lactate, Serum Urgent (22:56 12/13/2016 Mariaelena ANDERSON) (Ack 23:06 AMcQuoid ER Tech1) (23:14 JSanders R.N.) Chest 1V Urgent (23:28 12/13/2016 Mariaelena ANDERSON) (Ack 23:46 AMcQuoid ER Tech1) (23:50 JSanders R.N.) MEDICATION ORDERS: Glucagon IV 0.5 mg (NOW) (22:32 12/13/2016 Mariaelena ANDERSON) (Ack 22:45 RCollier R.N.) (22:51 RCollier R.N.) IV FLUIDS: IV Saline Lock (21:52 12/13/2016 Mariaelena ANDERSON) (22:11 CBradburn R.N.) IV NS : initial bolus 250 mL (1000 mL/hr), then 100 mL/hr for 4h (NOW); Urgent (23:00 12/13/2016 Mariaelena ANDERSON) (23:14 Saida R.N.) Levaquin IV 750 mg/150 mL (NOW) (23:21 12/13/2016 Mariaelena ANDERSON) (Ack 23:21 Ciara R.N.) (23:33 Saida R.N.) ORDER SHEET NOTES: [Electronically signed by Jenny Cardona R.N. (00:22 12/14/2016)] [Electronically signed by Julio Ledesma MD (00:31 12/14/2016)] [Electronically locked/signed by Jenny Cardona R.N. (00:22 12/14/2016)]
--- NOTE | 2016-12-13 23:22 | DIAGNOSTIC IMAGING REPORT ---
PROCEDURE: XR SOFT TISSUE NECK INDICATION: FOREIGN BODY TECHNIQUE: AP and lateral views. COMPARISON: None. FINDINGS: Normal prevertebral soft tissues without evidence of a radiopaque foreign body. Normal alignment without fracture. Moderate C5-6 degenerative changes. Right carotid atherosclerosis. IMPRESSION: 1. No evidence of a radiopaque foreign body
[2016-12-14] VITALS (7 sets, daily range): BP systolic 134–188; BP diastolic 59–86
--- NOTE | 2016-12-14 00:19 | DIAGNOSTIC IMAGING REPORT ---
PROCEDURE: XR CHEST 1 VIEW INDICATION: DYSPHAGIA TECHNIQUE: Portable AP view 11:32 p.m. COMPARISON: Chest x-ray 10/31/2016. FINDINGS: Stable mild elevation of the right hemidiaphragm with minor right basilar atelectasis. Heart and mediastinum are normal. Thorax is normal. Left upper quadrant surgical changes. No significant interval change. IMPRESSION: 1. Stable chest 2. Elevated right hemidiaphragm
--- NOTE | 2016-12-14 00:27 | HISTORY AND PHYSICAL ---
ADMITTED: 12/13/2016 CHIEF COMPLAINT: 1. Dysphagia and confusion HISTORY OF PRESENT ILLNESS: This is an 86-year-old white female who developed dysphagia tonight while she was trying to swallow solid food and this actually happens from [id number] for her and also daughter noticed that patient is being confused and weak for last 3 days, which happens usually with UTI. No dysuria or frequency. No incontinence. No fever, no chills, but patient was brought to emergency department and decision approved by administration of the glucagon, but patient was found to have a UTI with the symptoms of sepsis. MEDICAL/SURGICAL HISTORY: Past medical history: Remarkable for diabetes mellitus , hypertension, esophageal strictures, stroke, breast cancer and colon cancer. Surgical history: Remarkable for bilateral mastectomy, hysterectomy, appendectomy, cholecystectomy, and hip fracture repair. Hospitalization: Last one was 1 month ago and that was for the hip fracture. MEDICATIONS: 1. Aspirin 81 mg daily. 2. Celexa 20 mg daily. 3. Divalproex 250 mg daily. 4. Losartan 100 mg daily. 5. Metformin 500 mg 3 a day. 6. Metoprolol ER 100 mg daily. 7. Simvastatin 20 mg daily. 8. Trazodone 50 mg daily. ALLERGIES: THE PATIENT IS ALLERGIC TO: 1. CODEINE. 2. SULFA. 3. MORPHINE. SOCIAL HISTORY: The patient is a and has 5 kids. Lives with her daughter. No history of smoking, alcohol or drug abuse. FAMILY HISTORY: Noncontributory. REVIEW OF SYSTEMS: The patient has been losing weight recently. Mild hearing loss. No difficulty with vision. No runny nose or congestion. No cough or sore throat. No shortness of breath, chest pain or palpitations. No nausea, no vomiting, no abdominal pain. Normal regular bowel movements. No arthralgia except the right hip pain. No headaches. No dizziness. No tingling, no numbness. No localized weakness. No syncope. PHYSICAL EXAMINATION: VITAL SIGNS: Blood pressure 143/59, heart rate is 75, respiration 16, oxygen saturation 95% on room air, and temperature is 98.3. GENERAL APPEARANCE: Well-developed, well-nourished, good body build, no acute distress. HEENT: Ears: Normal tympanic membranes. Mouth: Normal hypopharynx, no exudation, no erythema. Nose: Normal mucosa. NECK: Supple. No JVD. No carotid bruit. No palpable mass. SKIN: Warm and dry with good turgor. LUNGS: Clear to auscultation. No rhonchi, wheezing or crackles. HEART: Regular S1 and S2. No murmur. No S3 was heard. ABDOMEN: Soft, nontender. Bowel sounds are positive. EXTREMITIES: No edema. Decreased peripheral pulses. No signs of DVT or cyanosis. MUSCULOSKELETAL: Grossly within normal limits except pain in the right hip. NEUROLOGIC: Alert and oriented x3. Cranial nerves are grossly intact. No motor deficits. Pupils are equal, round, and reactive to light. Extraocular movements are intact. No nystagmus. No cerebellar signs. Deep tendon reflexes are bilateral and symmetric. LAB/IMAGING: Labs: UA is consistent with a UTI with 3+ blood and positive leukocyte esterase and white blood count of 75-100. Glucose is 364, explains why glucagon administration, BUN is 30, creatinine is 1 , sodium is 134, potassium 3.5, chloride is 96, CO2 is 26, calcium is 7. Albumin of 3.2. Liver enzymes unremarkable. White blood count is 29.8, hemoglobin is 11.9, hematocrit is 37, platelet count is 168,000. IMPRESSION: 1. Urosepsis. 2. Urinary tract infection. 3. Diabetes mellitus. 4. Hypertension. 5. Esophageal stricture. PLAN: The patient will be admitted to the [facility], hemodynamically stable and patient will be started on IV Levaquin and also IV hydration. We will continue outpatient medications, monitor blood sugar, and also we will obtain a chest x-ray and blood cultures not done in emergency department.
--- NOTE | 2016-12-14 00:31 | ED DISCHARGE INSTRUCTIONS ---
Patient: LEANN TORRES General Instructions [facility] VisitID: [id number] [address] [place] [address] 86y, F Registration Date/Time: 12/13/2016 Sepsis. Esophageal foreign body: food (passed). Urinary tract infection. (Electronically signed by Julio Ledesma MD 12/14/2016 0:31)
--- NOTE | 2016-12-14 00:31 | ED MAR SUMMARY ---
..... Medication Administration Record [facility] [address] [place] [address] Patient: LEANN TORRES Visit ID: [id number] 86y, F Weight: 42.6 kg Height/Length: 62 in BMI: 17.2 ALLERGIES: Codeine, Sulfa Antibiotics, morphine Given 22:50 12/13/2016 Ainsley Arora R.N. Medication Administered: GLUCAGON [IVP], Dose: 0.5 mg IVP over 1 minute(s), Site: #1 right forearm. Medication Ordered: Glucagon IV 0.5 mg (NOW). Start 23:14 12/13/2016 Jenny Cardona R.N. Medication Administered: IV NS (SALINE), Dose: IV Fluids over 1 hour(s), Rate: 1000 mL/hr, Bolus: 250 mL over 15 minute(s), Dispensed: 1000 mL bag, Site: #1 right forearm. Medication Ordered: IV NS : initial bolus 250 mL (1000 mL/hr), then 100 mL/hr for 4h (NOW); Urgent. Start 23:33 12/13/2016 Jenny Cardona R.N. Medication Administered: LEVAQUIN [IVPB] (LEVOFLOXACIN), Dose: 750 mg IVPB over 90 minute(s), Rate: 100 mL/hr, Dispensed: 150 mL bag, Site: #1 right forearm. Medication Ordered: Levaquin IV 750 mg/150 mL (NOW).
--- NOTE | 2016-12-14 00:31 | ED MED RECONCILIATION SUMMARY ---
Patient: LEANN TORRES Medication Reconciliation Report [facility] VisitID: [id number] [address] [place] [address] 86y, F Registration Date/Time: 12/13/2016 Weight: 42.6 kg Height/Length: 62 in. BMI: 17.2 ALLERGIES: Codeine, morphine, Sulfa Antibiotics The patient's Home Medications are listed below: THE FOLLOWING MEDICATIONS NEED TO BE RECONCILED: Aspirin Oral (81 mg) 1 tablet, daily Citalopram Hydrobromide Oral (20 mg) 1 tablet, day Divalproex Sodium Oral (250 mg) 1 tablet, day Losartan Potassium Oral (100 mg) 1 tablet, daily MetFORMIN HCl Oral 500 mg, 3x a day Metoprolol Succinate ER Oral 500mg, daily Simvastatin Oral 20 mg, daily TraZODone HCl Oral 50 mg, daily The source(s) of the original Home Medication information: Not obtained. The following Medications were given to the patient in the Emergency Department: Glucagon [IVP] IVP 0.5 mg, administered: 12/13/2016 10:50:00 PM IV NS IV Fluids bolus 250 mL over 15 minute(s), then 1000 mL/hr, administered: 12/13/2016 11:14:00 PM Levaquin [IVPB] IVPB bolus 0, then 750 mg 100 mL/hr, administered: 12/13/2016 11:33:00 PM The following Medications were prescribed to the patient: None.
--- NOTE | 2016-12-14 00:31 | ED MED RECONCILIATION SUMMARY ---
Patient: LEANN TORRES Medication Reconciliation Report [facility] VisitID: [id number] [address] [place] [address] 86y, F Registration Date/Time: 12/13/2016 Weight: 42.6 kg Height/Length: 62 in. BMI: 17.2 ALLERGIES: Codeine, morphine, Sulfa Antibiotics The patient's Home Medications are listed below: THE FOLLOWING MEDICATIONS NEED TO BE RECONCILED: Aspirin Oral (81 mg) 1 tablet, daily Citalopram Hydrobromide Oral (20 mg) 1 tablet, day Divalproex Sodium Oral (250 mg) 1 tablet, day Losartan Potassium Oral (100 mg) 1 tablet, daily MetFORMIN HCl Oral 500 mg, 3x a day Metoprolol Succinate ER Oral 500mg, daily Simvastatin Oral 20 mg, daily TraZODone HCl Oral 50 mg, daily The source(s) of the original Home Medication information: Not obtained. The following Medications were given to the patient in the Emergency Department: Glucagon [IVP] IVP 0.5 mg, administered: 12/13/2016 10:50:00 PM IV NS IV Fluids bolus 250 mL over 15 minute(s), then 1000 mL/hr, administered: 12/13/2016 11:14:00 PM Levaquin [IVPB] IVPB bolus 0, then 750 mg 100 mL/hr, administered: 12/13/2016 11:33:00 PM The following Medications were prescribed to the patient: None.
--- NOTE | 2016-12-14 00:31 | ED MAR SUMMARY ---
..... Medication Administration Record [facility] [address] [place] [address] Patient: LEANN TORRES Visit ID: [id number] 86y, F Weight: 42.6 kg Height/Length: 62 in BMI: 17.2 ALLERGIES: Codeine, Sulfa Antibiotics, morphine Given 22:50 12/13/2016 Ainsley Arora R.N. Medication Administered: GLUCAGON [IVP], Dose: 0.5 mg IVP over 1 minute(s), Site: #1 right forearm. Medication Ordered: Glucagon IV 0.5 mg (NOW). Start 23:14 12/13/2016 Jenny Cardona R.N. Medication Administered: IV NS (SALINE), Dose: IV Fluids over 1 hour(s), Rate: 1000 mL/hr, Bolus: 250 mL over 15 minute(s), Dispensed: 1000 mL bag, Site: #1 right forearm. Medication Ordered: IV NS : initial bolus 250 mL (1000 mL/hr), then 100 mL/hr for 4h (NOW); Urgent. Start 23:33 12/13/2016 Jenny Cardona R.N. Medication Administered: LEVAQUIN [IVPB] (LEVOFLOXACIN), Dose: 750 mg IVPB over 90 minute(s), Rate: 100 mL/hr, Dispensed: 150 mL bag, Site: #1 right forearm. Medication Ordered: Levaquin IV 750 mg/150 mL (NOW).
--- NOTE | 2016-12-14 00:31 | ED DISCHARGE INSTRUCTIONS ---
Patient: LEANN TORRES General Instructions [facility] VisitID: [id number] [address] [place] [address] 86y, F Registration Date/Time: 12/13/2016 Sepsis. Esophageal foreign body: food (passed). Urinary tract infection. (Electronically signed by Julio Ledesma MD 12/14/2016 0:31)
[2016-12-14] MEDS ORDERED: ASPIRIN325 MG PO (00:41)
[2016-12-14] MEDS ORDERED: CELEXA20 MG PO (00:42)
[2016-12-14] MEDS ORDERED: ACETAMINOPHEN325 MG PO (00:45)
--- NOTE | 2016-12-14 06:03 | Progress Note ---
Subjective General History Of Present Illness: This is an 86-year-old white female who developed dysphagia tonight while she was trying to swallow solid food and this actually happens from [id number] for her and also daughter noticed that patient is being confused and weak for last 3 days, which happens usually with UTI. No dysuria or frequency. No incontinence. No fever, no chills, but patient was brought to emergency department and decision approved by administration of the glucagon, but patient was found to have a UTI with the symptoms of sepsis. Advance care plan discussion: Living will: Yes DPA: Yes POLST form: Yes Code Status: Full No Code Organ doner: Yes All information above were obtained by discussion directly with patient and her daughter. Advace Care Plan material was not presented to her
--- NOTE | 2016-12-14 06:03 | Progress Note ---
Subjective General History Of Present Illness: This is an 86-year-old white female who developed dysphagia tonight while she was trying to swallow solid food and this actually happens from [id number] for her and also daughter noticed that patient is being confused and weak for last 3 days, which happens usually with UTI. No dysuria or frequency. No incontinence. No fever, no chills, but patient was brought to emergency department and decision approved by administration of the glucagon, but patient was found to have a UTI with the symptoms of sepsis. Advance care plan discussion: Living will: Yes DPA: Yes POLST form: Yes Code Status: Full No Code Organ doner: Yes All information above were obtained by discussion directly with patient and her daughter. Advace Care Plan material was not presented to her
[2016-12-15] VITALS (7 sets, daily range): BP systolic 130–183; BP diastolic 53–78
--- NOTE | 2016-12-15 14:57 | Progress Note ---
Subjective General Patient seen and examined. Patient is in good spirits. Patient had one episode of diarrhea yesterday. Patient has had no repeat episodes of diarrhea. Patient was additionally seen to have 2 bottles that grew Escherichia coli. Patient is currently receiving antibiotics that catered towards blood culture findings Constitutional Denies: Fever, Chills, Sweats, Weakness, Malaise, Other. ENT Denies: Ear Pain, Ear Discharge, Nose Pain, Nasal Discharge, Nasal Congestion, Mouth Pain, Mouth Swelling, Throat Pain, Throat Swelling, Other. Respiratory Denies: Cough, Dry, SOB w/exertion, Wheezing, Hemoptysis, Pleuritic Pain, Sputum , Other. Cardiovascular Denies: Chest Pain, Palpitations, Orthopnea, PND, Edema, Light-headedness, Other. Gastrointestinal Denies: Nausea, Vomiting, Abdominal Pain, Diarrhea, Constipation, Melena, Hematochezia, Other. Genitourinary Denies: Dysuria, Frequency, Incontinence, Hematuria, Retention, Other. Musculoskeletal Denies: Neck Pain, Shoulder Pain, Arm Pain, Back Pain, Hand Pain, Leg Pain, Foot Pain, Other. Skin Denies: Rash, Lesions, Jaundice, Bruising, Other. Neurological Denies: Weakness, Numbness, Incoordination, Change in speech, Confusion, Seizures, Other. Physical Exam Vital Signs / I&Os Vital Signs Date Time Temp Pulse Resp B/P Pulse O2 O2 Flow FiO2 Ox Delivery Rate 12/15 1047 98.2 68 20 130/53 95 Room Air 0.0 12/15 0900 Room Air 12/15 0659 98.2 75 16 162/69 98 Room Air 0.0 12/15 0342 0.0 12/15 0247 99.0 78 16 139/60 94 Room Air 08 0005 93 183/72 12/14 2325 99.0 93 20 188/69 94 Room Air 12/14 1836 99.3 82 16 136/59 97 Room Air 0.0 12/14 1615 0.0 I&O 12/14 0800 07 1600 08 0000 Intake Total 894 611 180 Output Total 50 340 Balance 894 561 -160 General Appearance Alert, Oriented X3, No acute distress HEENT Atraumatic, PERRLA, Moist mucous membranes Lungs Clear to auscultation Neck No JVD, No masses, No lymphadenopathy Cardiovascular Regular rate and rhythm, Normal S1 and S2 Abdomen Soft, No tenderness Extremities No edema, Normal pulses, No tenderness Skin No Breakdown Neurological Normal speech, Sensation intact, Cranial nerves intact, No lateralizing signs Psych/Mental Status Mood normal LAB Results Laboratory Tests 12/15 12/15 0730 0730 Chemistry Plasma Sodium (136 - 145 mmol/L) 137 Plasma Potassium (3.5 - 5.1 mmol/L) 4.1 Plasma Chloride (98 - 107 mmol/L) 104 CO2 (Enzymatic) (21 - 32 mmol/L) 22 BUN (7 - 18 mg/dL) 26 Creatinine (0.6 - 1.3 mg/dL) 0.8 Est GFR ( Amer) (mL/min) >60 Est GFR (Non-Af Amer) (mL/min) >60 Glucose (70 - 110 mg/dL) 185 Lactic Acid (0.4 - 2.0 mmol/L) 1.0 Plasma Calcium (8.5 - 10.1 mg/dL) 8.1 Total Bilirubin (0.0 - 1.0 mg/dL) 0.3 AST (15 - 37 U/L) 14 ALT (12 - 78 U/L) 18 Alkaline Phosphatase (46 - 116 U/L) 47 Total Protein (6.4 - 8.2 g/dL) 4.9 Albumin (3.3 - 5.0 g/dL) 2.3 Hematology WBC (4.5 - 11.5 K/uL) 14.8 RBC (4.00 - 5.20 M/uL) 3.15 Hgb (12.0 - 16.0 gm/dL) 9.7 Hct (36.0 - 46.0 %) 29.9 MCV (80 - 100 fL) 95 MCH (26 - 34 pg) 31 RDW (11.6 - 14.8 %) 13.9 Neut % (Auto) (50 - 75 %) 86.2 Lymph % (Auto) (25 - 40 %) 10.3 [place] % (Auto) (3 - 14 %) 3.4 Eos % (Auto) (0 - 4 %) 0.1 Baso % (Auto) (0 - 2 %) 0 Plt Count, EDTA (150 - 400 K/uL) 121 PUBS MCHC (31 - 37 g/dL) 33 Assessment and Plan Problem List 1. Sepsis due to urinary tract infection Plan Patient was seen to have a positive urinalysis Patient also had 2 cultures obtained from blood and positive for Escherichia coli Patient currently on Levaquin and is responding appropriately We'll continue to trend white blood cell count Will await speciation for Escherichia coli cultures 2. Diabetes mellitus Plan Carb consistent diet We'll continue with sliding scale coverage We'll continue with home medication Blood sugars have been under control 3. Hypertension Plan Established history of hypertension Patient has been relatively well-controlled Patient had an episode of hypertensive urgency last night which resolved when the medication took effect We'll continue with home medication Vital signs as per nursing protocol
[2016-12-16 02:20] VITALS: BP 172/58
[2016-12-16 06:35] VITALS: BP 170/86
[2016-12-16 10:40] VITALS: BP 162/72
[2016-12-16 15:15] VITALS: BP 168/75
--- NOTE | 2016-12-16 16:22 | Progress Note ---
Subjective General Patient seen and examined. Patient is feeling very well this morning. Patient is currently pain free without any episodes of fever. Constitutional Denies: Fever, Chills, Sweats, Weakness, Malaise, Other. Respiratory Denies: Cough, Dry, SOB w/exertion, Wheezing, Hemoptysis, Pleuritic Pain, Sputum , Other. Cardiovascular Denies: Chest Pain, Palpitations, Orthopnea, PND, Edema, Light-headedness, Other. Gastrointestinal Diarrhea. Denies: Nausea, Vomiting, Abdominal Pain, Constipation, Melena, Hematochezia, Other. Genitourinary Denies: Dysuria, Frequency, Incontinence, Hematuria, Retention, Other. Musculoskeletal Denies: Neck Pain, Shoulder Pain, Arm Pain, Back Pain, Hand Pain, Leg Pain, Foot Pain, Other. Skin Denies: Rash, Lesions, Jaundice, Bruising, Other. Neurological Denies: Weakness, Numbness, Incoordination, Change in speech, Confusion, Seizures, Other. Physical Exam Vital Signs / I&Os Vital Signs Date Time Temp Pulse Resp B/P Pulse O2 O2 Flow FiO2 Ox Delivery Rate 12/16 1515 98.2 69 18 168/75 98 Room Air 12/16 1040 98.4 80 18 162/72 94 12/16 0840 Room Air 12/16 0635 98.6 18 170/86 96 12/16 0220 99.0 76 18 172/58 96 Room Air 08 2209 99.1 72 18 159/67 95 Room Air 12/15 2130 Room Air 12/15 1809 97.9 77 18 156/78 96 Room Air I&O 12/15 0800 /08 1600 12/16 0000 Intake Total 753 128 5866 Output Total 710 229 617 Balance -065 155 0416 General Appearance Alert, Oriented X3, No acute distress HEENT Atraumatic, Moist mucous membranes Lungs Clear to auscultation Neck No JVD, No masses Cardiovascular Regular rate and rhythm, Normal S1 and S2, No murmurs, gallops, rubs Abdomen Soft, No tenderness, No masses Extremities No clubbing, No edema, Normal pulses, No tenderness Skin No Breakdown, No Significant Lesions Neurological Normal speech, Normal tone, Cranial nerves intact, No lateralizing signs Psych/Mental Status Mood normal LAB Results Laboratory Tests 12/16 0535 Hematology WBC (4.5 - 11.5 K/uL) 9.1 RBC (4.00 - 5.20 M/uL) 3.11 Hgb (12.0 - 16.0 gm/dL) 9.5 Hct (36.0 - 46.0 %) 29.6 MCV (80 - 100 fL) 95 MCH (26 - 34 pg) 31 RDW (11.6 - 14.8 %) 14.1 Neut % (Auto) (50 - 75 %) 73.2 Lymph % (Auto) (25 - 40 %) 18.5 [place] % (Auto) (3 - 14 %) 7.9 Eos % (Auto) (0 - 4 %) 0.2 Baso % (Auto) (0 - 2 %) 0.2 Plt Count, EDTA (150 - 400 K/uL) 100 PUBS MCHC (31 - 37 g/dL) 32 Microbiology Date/Time Procedure - Status Source Growth 12/16 1220 Blood Culture - RECD BLOOD 12/16 1215 Blood Culture - RECD BLOOD Assessment and Plan Problem List 1. Sepsis due to urinary tract infection Plan Patient has evidence of UTI Positive blood cultures 2 which contain Proteus We'll continue with current antibiotic regimen Blood cultures repeated If no growth was seen by tomorrow would will discharge patient on 4 additional days of antibiotic 2. UTI (urinary tract infection) Plan Improved No dysuria noted We'll continue with current antibiotic regimen 3. Seizure disorder Plan Seizure precautions 4. Diabetes mellitus Plan Blood sugars have been well-controlled We'll continue with current regimen 5. Hypertension Plan Patient's blood pressure rises prior to giving a.m. and p.m. medications Patient's blood pressure normalizes once medications take effect We'll continue with current antihypertensive regimen
[2016-12-16 18:51] VITALS: BP 167/58
[2016-12-16 22:37] VITALS: BP 153/69
[2016-12-17 03:00] VITALS: BP 172/75
[2016-12-17 06:38] VITALS: BP 186/83
[2016-12-17] MEDS ORDERED: LEVAQUIN500 MG PO (07:51)
--- NOTE | 2016-12-17 09:23 | DISCHARGE SUMMARY ---
ADMIT DATE: 12/13/2016 DISCHARGE DATE: 12/17/2016 DISCHARGE DIAGNOSES: 1. Urosepsis. 2. Urinary tract infection. 3. Hypertension. 4. Diabetes mellitus. 5. Esophageal stricture. BRIEF HISTORY: This is an 86-year-old white female who developed dysphagia the night of the admission trying to swallow solid food, which happens for her from time to time, but also the patient was becoming confused and weak for 3 days prior to admission per her daughter, which usually happens with UTI, but no dysuria, frequency or incontinence. No fever, no chills. The patient was brought to the emergency and was found to have a UTI with fever and high white blood count consistent with urosepsis. HOSPITAL COURSE: The patient was admitted to the acute care inpatient and started on Levaquin and the blood culture and also urine showed Proteus gram negative bacteria which is sensitive to Levaquin. The patient improved during the hospital course. The patient's blood pressure was issue during the hospital course and needed IV medication, but finally stabilized and rate was controlled on average. Today, the patient is doing well. No fever, no chills, no chest pain, no shortness of breath, no nausea, no vomiting, ambulating relatively well, eating and drinking okay and back to her normal state. PHYSICAL EXAMINATION: VITAL SIGNS: Temperature is 98.7, pulse is 70, respirations 18, blood pressure 186/83 but all over blood pressure is controlled and pulse oximetry is 94% on room air. LUNGS: Clear to auscultation. No rhonchi or wheezing or crackles. HEART: Regular S1 and S2. No murmur. No S3 was heard. ABDOMEN: Soft, nontender. Bowel sounds are positive. EXTREMITIES: No edema. LAB/IMAGING: No new labs today. DISCHARGE INSTRUCTIONS/MEDICATIONS: 1. Disposition: The patient will be discharged home to follow up with her primary care physician as an outpatient within 1 week. 2. Discharge medications will be aspirin 81 mg daily, Celexa 20 mg daily, Divalproex 250 mg daily, Losartan 100 mg daily, Metformin 500 mg 3 times a day, Metoprolol ER 100 mg daily, simvastatin 20 mg daily, trazodone 50 mg daily. The patient also will be on Levaquin 500 mg daily for 7 days.
[2016-12-17] MEDS ORDERED: LIDODERM5 % TOP (11:42)
== END 2016-12-17 11:50 | disposition home or self-care (01) | DRG 872 ==
LOC: ED SRH 21:31 → TRANS SRH 23:26 → ACUTE2 SRH 23:26 → TRANS SRH 23:26 → ACUTE2 SRH 12-14 00:26
PROVIDERS: ADMIT Neuromusculoskeletal Medicine, Sports Medicine
DX: A41.59 Other Gram-negative sepsis (principal); N39.0 Urinary tract infection, site not specified; B96.4 Proteus (mirabilis) (morganii) as the cause of diseases classified elsewhere; K22.2 Esophageal obstruction; R13.10 Dysphagia, unspecified; E11.9 Type 2 diabetes mellitus without complications; I10 Essential (primary) hypertension